=== PATIENT | male | born 1965 | race Caucasian/White ===

== ENCOUNTER 2023-02-02 12:55 | Inpatient (IN) ==
[2023-02-02] MEDS ORDERED: THIAMINE HCL 200 MG in SODIUM CHLORIDE 0.9% 50 ML IV STA (13:19)
[2023-02-02] MEDS ORDERED: SODIUM CHLORIDE 0.9% 1000ML 1,000 ML IV ONE (13:19)
[2023-02-02] MEDS ORDERED: LORazepam 2 MG/1 ML VIAL IV STA ×2 (13:19→16:12)
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
[2023-02-02 14:22] LABS: Hematocrit (blood only) 40.6 % (42.0-52.0); Hemoglobin 13.9 g/dl (14.0-18.0); Mean Corpuscular Hemoglobin 32.7 pg (25.0-34.0); Mean Corpuscular Hgb Conc 34.2 g/dL (32.0-36.0); Mean Corpuscular Volume 95.5 fL (80.0-100.0); Mean Platelet Volume 9.4 fL (9.4-12.4); Platelet Count 73 K/uL (130-400); RDW Coefficient of Variation 12.1 % (11.5-14.5); RDW Standard Deviation 42.5 fL (36.4-46.3); Red Blood Count 4.25 M/uL (4.70-6.10); White Blood Count 6.35 K/ul (4.8-10.8)
[2023-02-02 14:32] LABS: Albumin Globulin Ratio 1.5 (0.9-2); Albumin Level 4.6 gm/dl (3.4-5.0); BUN Creatinine Ratio 12.2 (10-20); Bilirubin,Total 2.5 mg/dl (0.2-1.0); Calcium 9.2 mg/dl (8.6-10.3); Creatinine Clr Calc Pharmacy 100.4 ml/min; Est GFR (African American) 114.6 ml/min; Est GFR (Non-African American) 98.9 ml/min; Potassium 3.9 mmol/L (3.5-5.1); Total Protein 7.6 gm/dl (6.0-8.3)
[2023-02-02 14:47] LABS: Basophils # (auto) 0.05 K/uL (0-0.2); Basophils % (auto) 0.8 %; Eosinophils # (auto) 0.09 K/uL (0-0.50); Eosinophils % (auto) 1.4 %; Immature Granulocytes # (auto) 0.05 K/uL (0.01-0.20); Immature Granulocytes % (auto) 0.8 %; Lymphocytes % (auto) 3.1 %; Monocytes # (auto) 0.36 K/uL (0.11-0.59); Monocytes % (auto) 5.7 %; Neutrophils % (auto) 88.2 %; Platelet Estimate Decreased (Normal); RBC Morphology Unremarkable
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
[2023-02-02 15:41] LABS: Appearance Urine Clear (Clear); Bacteria Urine Automated Negative (Negative); Bilirubin Urine Negative (Negative); Blood Urine Trace (Negative); Color Urine Orange; Glucose Urine UA Negative (Negative); Ketones Urine 4+ (Negative); Leukocyte Esterase Urine Negative (Negative); Nitrite Urine Negative (Negative); Protein Urine 1+ (Negative); RBC Urine Automated 0-4 /hpf (0-4); Specific Gravity Urine 1.023 (1.000-1.030); Urobilinogen Urine Negative (Negative); WBC Urine Automated 0 /hpf (0-5); pH Urine 5.5 (4.5-7.5)
[2023-02-02 15:49] LABS: Acetaminophen < 3 ug/ml (10-30); Salicylate < 3.0 mg/dl (3.0-30)
[2023-02-02 16:24] LABS: Amphetamines+Metham, Urine Neg (Neg); Barbiturates, Urine Neg (Neg); Benzodiazepine, Urine Neg (Neg); Cocaine, Urine Neg (Neg); MDMA (Ecstacy), Urine Neg (Neg); Methadone, Urine Neg (Neg); Opiate, Urine Neg (Neg); Phencyclidine, Urine Neg (Neg)
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
[2023-02-02] MEDS ORDERED: LORazepam 2 MG/1 ML VIAL IV PRN ×3 (18:25)
[2023-02-02] MEDS ORDERED: chlordiazePOXIDE ALCOHOL WITHDRAWL 25MG PO STA (18:25)
[2023-02-02] MEDS ORDERED: Ativan IV Alcohol Withdrawal--Active Protocol IV PRN (18:25)
--- NOTE | 2023-02-02 19:45 | Ultrasound Report ---
ULTRASOUND RIGHT UPPER QUADRANT ABDOMEN CLINICAL HISTORY: Elevated hepatic transaminases. COMPARISON STUDY: No priors. TECHNIQUE: Real-time, grayscale, and color flow sonography of the right upper quadrant of the abdomen was performed. Images are reviewed in the transverse and longitudinal planes. FINDINGS: Liver: The liver is enlarged and demonstrates heterogeneously increased echotexture indicating steato sis. There is no intrahepatic biliary ductal dilatation. The main portal vein is patent. Gallbladder: A fibroid or gallbladder polyp is incidentally noted. The gallbladder is otherwise maciej l in appearance. No shadowing gallstones are identified. There is no gallbladder wall thickening or p ericholecystic fluid. A sonographic Diego's sign is reportedly absent. The common bile duct measures up to 0.4 cm in diameter. Pancreas: Not visualized due to overlying bowel gas. Right kidney: Survey images of the right kidney demonstrate normal size and echotexture. There is no hydronephrosis. There is trace nonspecific perinephric fluid. Ascites: None. IMPRESSION: 1. Hepatomegaly and hepatic steatosis. 2. No gallstones are seen. 3. A 5 mm gallbladder polyp is noted. Nonemergent GI follow-up is recommended. 4. Nonvisualization of the pancreas. ACT 112: Negative or not required by law. Electronically signed by: Michael Kirkland M.D. 02/02/2023 7:44 PM
[2023-02-02] MEDS: chlordiazePOXIDE HCl 25 MG CAP PO SCH (20:03)
[2023-02-03] MEDS: chlordiazePOXIDE HCl 25 MG CAP PO SCH ×3 (00:31→13:34)
[2023-02-03 06:22] LABS: Basophils # (auto) 0.03 K/uL (0-0.2); Basophils % (auto) 0.5 %; Eosinophils # (auto) 0.06 K/uL (0-0.50); Eosinophils % (auto) 1.1 %; Hematocrit (blood only) 37.6 % (42.0-52.0); Hemoglobin 13.3 g/dl (14.0-18.0); Immature Granulocytes # (auto) 0.02 K/uL (0.01-0.20); Immature Granulocytes % (auto) 0.4 %; Lymphocytes # (auto) 0.72 K/uL (1.2-3.4); Lymphocytes % (auto) 12.9 %; Mean Corpuscular Hemoglobin 32.6 pg (25.0-34.0); Mean Corpuscular Hgb Conc 35.4 g/dL (32.0-36.0); Mean Corpuscular Volume 92.2 fL (80.0-100.0); Mean Platelet Volume 9.8 fL (9.4-12.4); Monocytes # (auto) 0.43 K/uL (0.11-0.59); Monocytes % (auto) 7.7 %; Neutrophils # (auto) 4.32 K/uL (1.40-6.50); Neutrophils % (auto) 77.4 %; Platelet Count 84 K/uL (130-400); RDW Coefficient of Variation 11.9 % (11.5-14.5); RDW Standard Deviation 40.7 fL (36.4-46.3); Red Blood Count 4.08 M/uL (4.70-6.10); White Blood Count 5.58 K/ul (4.8-10.8)
[2023-02-03 06:34] LABS: Albumin Globulin Ratio 1.5 (0.9-2); Albumin Level 4.4 gm/dl (3.4-5.0); BUN Creatinine Ratio 13.4 (10-20); Bilirubin,Total 2.6 mg/dl (0.2-1.0); Calcium 9.6 mg/dl (8.6-10.3); Creatinine Clr Calc Pharmacy 124.2 ml/min; Est GFR (African American) 124.5 ml/min; Est GFR (Non-African American) 107.4 ml/min; Magnesium 1.7 mg/dl (1.7-2.4); Potassium 3.8 mmol/L (3.5-5.1); Total Protein 7.4 gm/dl (6.0-8.3)
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
[2023-02-03] MEDS ORDERED: FOLIC ACID 1 MG in SYRINGE 9.8 ML IV SCH (09:00)
[2023-02-03] MEDS ORDERED: THIAMINE HCL 100 MG TAB PO SCH (09:00)
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
[2023-02-03] MEDS ORDERED: chlordiazePOXIDE HCl 25 MG CAP PO SCH (19:00)
[2023-02-04 12:16] LABS: HBSAG NON-REACTIVE (NON-REACTIVE); Hepatitis A Antibody IgM NON-REACTIVE (NON-REACTIVE); Hepatitis B Core Antibody IgM NON-REACTIVE (NON-REACTIVE)
--- NOTE | 2023-02-04 22:39 | Electrocardiogram Report ---
Test Reason : Blood Pressure : / mmHG Vent. Rate : 072 BPM Atrial Rate : 072 BPM P-R Int : 162 ms QRS Dur : 110 ms QT Int : 390 ms P-R-T Axes : 062 -06 077 degrees QTc Int : 427 ms Normal sinus rhythm Incomplete right bundle branch block Borderline ECG When compared with ECG of 13-NOV-2020 14:02, Incomplete right bundle branch block is now Present Confirmed by Primitivo Adams ([id number]) on 02/04/2023 10:39:17 PM Referred By: REFERRED SELF Confirmed By:Primitivo Adams
[2023-02-05] MEDS ORDERED: chlordiazePOXIDE HCl 5 MG CAP PO SCH (23:00)
== END 2023-02-03 18:43 | disposition home or self-care (01) | DRG 897 ==
LOC: ED 12:55 → 2E 17:01 → SUATTDRO 17:01 → 2E 17:57

== ENCOUNTER 2023-06-12 08:31 | Inpatient (IN) ==
[2023-06-12] MEDS ORDERED: SODIUM CHLORIDE 0.9% 500 ML IV SCH (08:45)
[2023-06-12] MEDS ORDERED: LORazepam 1 MG/1 ML SYR ED Inj Use IV STA (09:25)
[2023-06-12] MEDS ORDERED: ONDANSETRON INJ 2 MG/ML 2 ML VIAL IV STA (09:25)
[2023-06-12] MEDS ORDERED: MULTI-VITAMIN INFUSION 10 ML, THIAMINE HCL 100 MG, FOLIC ACID 1 MG in SODIUM CHLORIDE 0... IV ONE (09:25)
--- NOTE | 2023-06-12 09:54 | Emergency Department Note ---
Impression & Plan Alcohol withdrawal, Alcohol abuse, Nausea & vomiting ED Provider Note CHIEF COMPLAINT: Nausea, vomiting, general illness, alcohol withdrawal HISTORY OF PRESENT ILLNESS: This 57-year-old male patient presents to the emergency department via private vehicle for evaluation of nausea, vomiting, general illness. Patient states he is an alcoholic. He states he normally drinks a pint of vodka a day. He has withdrawn in the past and has been hospitalized and has gone to rehab several times. The patient states his last drink was on Tuesday. Since , he has been experiencing intractable nausea and vomiting and states he is generally feeling terrible. The patient denies history of seizures. He does often get visual hallucinations when he detoxes. He is not currently experiencing hallucinations. Patient denies any vomiting blood. No chest pain, shortness of breath, abdominal pain. No headache, dizziness, numbness, or tingling. He has not reached out to a detox center upon deciding to quit. REVIEW OF SYSTEMS: A 10 system review of systems was performed with positives and pertinent negatives listed in the history of present illness. All other systems were reviewed and are negative. ALLERGIES: None PHYSICAL EXAM: VITALS: Vitals are noted on the nurse's note and reviewed by myself. Vital signs stable. GENERAL: This is a 57-year-old male, in no acute distress, nondiaphoretic, well- developed well-nourished. SKIN: The skin was without rashes, erythema, edema, or bruising. There is no tenting of the skin. Capillary refill less than 2 seconds. HEAD: Normocephalic atraumatic. EARS: External auditory canals clear, tympanic membranes pearly cooper without erythema or effusion bilaterally. No hemotympanum. Negative martinez sign EYES: Pupils equal round and reactive to light and accommodation. Conjunctivae without injection, sclerae without icterus. Extraocular movements intact. NOSE: Patent, turbinates without inflammation or discharge. No sinus tenderness. MOUTH: Mucous membranes moist. Tonsils are not enlarged. Pharynx without erythema or exudate. Uvula midline. Airway patent. Tongue does not deviate. NECK: Supple without nuchal rigidity. No lymphadenopathy. No thyromegaly. Cervical spine is nontender. No JVD. HEART: Regular rate and rhythm without murmurs gallops or rubs. LUNGS: Clear to auscultation bilaterally without wheezes, rales or rhonchi. No retractions or accessory muscle use. ABDOMEN: Positive bowel sounds x 4. Soft, nontender, without masses or organomegaly. Diego sign negative. No guarding or rebound tenderness. MUSCULOSKELETAL: No muscle atrophy, erythema, or edema noted. Full range of motion without joint tenderness in all extremities. No tenderness to palpation. Normal gait. Strength 5/5 throughout. NEURO: Patient was alert and oriented to person place and time. Normal sensation to light and sharp touch. Deep tendon reflexes 2+ throughout. No focal neurological deficits. An order was placed for continuous residential monitor. The monitor showed a normal sinus rhythm at a ventricular rate of 98 bpm, per my interpretation. EKG, per my interpretation: Normal sinus rhythm with ventricular rate of [address] elevation or depression. No T wave inversion. When compared to EKG completed on 04/13/2023, prolonged QT of 388 has improved and currently QT 334 EMERGENCY DEPARTMENT COURSE: The patient was seen and evaluated as above. The patient presents for alcohol withdrawal symptoms IV access obtained, labs were drawn. The patient was medicated with a banana bag and IV Ativan Labs were reviewed. No leukocytosis. There is an anemia with a hemoglobin of 12.8. Thrombocytopenia with a platelet count of 71,000. INR 1.0. Sodium is low at 126. Anion gap elevated at 17, BUN 46. AST mildly elevated at 62, otherwise transaminases without significant abnormality. Ammonia was 49. Alcohol was less than 10. Patient is not experiencing active hallucinations. The [facility] hospitalist is familiar with this patient and has detoxed him in the past. Given the patient's lab findings and presentation, did recommend admission. I did discuss the case with Dr. Arenas. He did agree to see and evaluate the patient for admission. Please see hospitalist dictation regarding ongoing management care of this patient Differential diagnosis includes Alcohol intoxication, toxicologic, infection, hypoglycemia, electrolyte abnormalities, cardiac sources, intracerebral event, neurologic, seizures, as well as other pathologies. I attest that I have personally reviewed the patient's current medication list. Patient was found to have normal blood pressure on screening and does not require follow-up. The chart was completed utilizing [employer] voice recognition software. Grammatical errors, random word insertions, pronoun errors, and incomplete sentences are an occasional consequence of this system due to software limitations, ambient noise, and hardware issues. Any formal questions or concerns about the content, text, or information contained within the body of this dictation should be directly addressed to the provider for clarification. Past Med/Surg History Medical History Upper GI bleeding Alcohol withdrawal Left rib fracture Vitamin D deficiency Alcohol use disorder, severe, dependence Pancytopenia Ambulatory dysfunction Esophageal stenosis Erosive esophagitis Acute metabolic encephalopathy Abnormal LFTs Alcoholism Acute blood loss anemia Contusion of multiple sites Alcohol abuse Ambulatory dysfunction Alcoholism in recovery Dupuytren's contracture of both hands Arthritis GERD (gastroesophageal reflux disease) Depression Anxiety Patella jack Hyperlipidemia no meds Surgical History History of surgery on upper extremity as a child History of esophagogastroduodenoscopy (EGD) Hx of hand surgery BL Family History Grandfather (Maternal) Myocardial infarction Father FH: ALS (amyotrophic lateral sclerosis) Other No family history of adverse response to anesthesia Denies family history of Ovarian cancer Prostate cancer Breast cancer Colorectal cancer Social History Smoking Status: Never smoker Tobacco Type: Smokeless Tobacco (Dip or Chew) Second Hand Exposure: No; Do You Dip or Chew Tobacco: Yes; Hx Alcohol Use: Yes Alcohol type: hard liquor Alcohol Intake Frequency Comment: daily vodka - pint Hx Substance Use: Yes (Alcohol) Preferred Language: Vietnamese Communication Ability: Effective Visual Impairment: No Limitations Hearing Ability: Normal Credit Compliance Officer Required: No Beliefs That Will Affect Care: None marital status: Current Living Situation: Parent Current Living Situation Comment: Mother current occupational status: unemployed current occupation: [employer] How many Children do You have: 2 Feels Safe at Home: Yes Childhood Exposure to Second-Hand Smoke: No Diet: regular Diet Comment: regular caffeine: Yes during the past year weight has: remained stable Dental Care, Regularly: No Physical Activity Frequency: Daily Seatbelt Use: always Sunscreen Use: Yes Assistive Devices: Cane Allergies Allergies Allergy/AdvReac Type Severity Reaction Status Date / Time No Known Allergies Allergy Unverified 04/27/23 09:19 Home Meds Home Medications Medication Instructions Recorded Confirmed multivitamin 1 tab PO DAILY 02/02/23 06/12/23 ergocalciferol (vitamin D2) 1,250 50,000 unit PO WK 06/12/23 06/12/23 mcg (50,000 unit) capsule thiamine HCl (vitamin B1) 100 mg 100 mg PO BID 06/12/23 06/12/23 tablet Previous Rx's Medication Instructions Recorded folic acid 1 mg tablet 1 mg PO DAILY #30 tabs 04/18/23 pantoprazole 40 mg tablet,delayed 40 mg PO BID #60 tabs 04/18/23 release Results & Data (ED) Vital Signs Vital Signs - 24 hr 06/12/23 09:08 06/12/23 09:20 06/12/23 09:30 Temperature 36.7 C Temperature Source Temporal Artery Scan Pulse Rate 119 H 95 H Pulse Rate [Apical] 100 H Pulse Rhythm Respiratory Rate 18 30 H Respiratory Effort / Characteristics Non-Labored Spontaneous Respiratory Depth Normal Respiratory Pattern Regular Blood Pressure 125/61 Blood Pressure [Right Arm] 120/78 Blood Pressure Mean 82 Blood Pressure Mean [Right Arm] 92 Blood Pressure Position [Right Arm] Pulse Oximetry 98 92 Oxygen Delivery Method Room Air Room Air Sepsis Recent Fever Within 48 Hours No Sepsis New/Unexplained Change in Mental Status No Sepsis Action Taken by Nursing No Action Required 06/12/23 09:32 06/12/23 11:00 06/12/23 11:43 Temperature 36.6 C Temperature Source Oral Pulse Rate 98 H Pulse Rate [Apical] 106 H Pulse Rhythm Regular Respiratory Rate 16 Respiratory Effort / Characteristics Non-Labored Spontaneous Respiratory Depth Normal Respiratory Pattern Regular Blood Pressure Blood Pressure [Right Arm] 113/89 Blood Pressure Mean Blood Pressure Mean [Right Arm] 97 Blood Pressure Position [Right Arm] Sitting Pulse Oximetry 95 97 99 Oxygen Delivery Method Room Air Room Air Room Air Sepsis Recent Fever Within 48 Hours Sepsis New/Unexplained Change in Mental Status Sepsis Action Taken by Nursing Laboratory Data 06/12/23 16:08 06/12/23 10:30 Lab Results 06/12/23 Range/Units 10:30 WBC 6.87 (4.8-10.8) K/ul RBC 4.12 L (4.70-6.10) M/uL Hgb 12.8 L (14.0-18.0) g/dl Hct 36.9 L (42.0-52.0) % MCV 89.6 (80.0-100.0) fL MCH 31.1 (25.0-34.0) pg MCHC 34.7 (32.0-36.0) g/dL RDW Std Deviation 41.8 (36.4-46.3) fL RDW Coeff of [place]ne[place] 12.7 (11.5-14.5) % Plt Count 71 L (130-400) K/uL MPV 10.2 (9.4-12.4) fL Immature Gran % (Auto) 0.1 % Neut % (Auto) 88.1 % Lymph % (Auto) 4.9 % [place] % (Auto) 6.8 % Eos % (Auto) 0.0 % Baso % (Auto) 0.1 % Neut # (Auto) 6.04 (1.40-6.50) K/uL Lymph # (Auto) 0.34 L (1.20-3.40) K/uL [place] # (Auto) 0.47 (0.11-0.59) K/uL Eos # (Auto) 0.00 (0.00-0.50) K/uL Baso # (Auto) 0.01 (0.00-0.20) K/uL Immature Gran # (Auto) 0.01 (0.01-0.20) K/uL PT 11.4 (9.0-12.0) Seconds INR 1.0 (0.9-1.1) APTT 25.6 (21.0-31.0) Seconds PTT Ratio 0.9 Sodium 126 L (136-145) mmol/L Potassium 4.7 (3.5-5.1) mmol/L Chloride 89 L (98-107) mmol/L Carbon Dioxide 20 L (21-32) mmol/L Anion Gap 17 H (3-11) BUN 46 H (6-23) mg/dl Creatinine 1.04 (0.6-1.4) mg/dl Est Cr Clr Drug Dosing Not Reportable Est GFR ( Amer) 92.6 ml/min Est GFR (Non-Af Amer) 79.9 ml/min BUN/Creatinine Ratio 44.2 H (10-20) Glucose 188 H (70-99(Fasting)) mg/dl Calcium 9.7 (8.6-10.3) mg/dl Magnesium 1.8 (1.7-2.4) mg/dl Total Bilirubin 1.9 H (0.2-1.0) mg/dl AST 62 H (13-39) U/L ALT 29 (7-52) U/L Alkaline Phosphatase 78 (34-104) U/L Ammonia 49.0 (18-72) umol/L Total Protein 7.1 (6.0-8.3) gm/dl Albumin 4.4 (3.4-5.0) gm/dl Globulin 2.7 (2.5-4.0) gm/dl Albumin/Globulin Ratio 1.6 (0.9-2) Ethyl Alcohol mg/dL < 10.0 (<10.0) mg/dl Administered Medications Folic Acid 1 mg/ Syringe 10 mls @ 5 mls/min IV QAM JACQUELIN Stop: 07/12/23 11:59 Last Admin: 06/12/23 12:46 Dose: 5 mls/min Documented By: LUCINDA Lactated Ringer's (Lr) 1,000 mls @ 125 mls/hr IV .Q8H JACQUELIN Stop: 07/12/23 12:14 Last Admin: 06/12/23 12:46 Dose: 125 mls/hr Documented By: LUCINDA Discontinued Medications Chlordiazepoxide HCl (Chlordiazepoxide Hcl 25 Mg Cap) 50 mg PO Q6H JACQUELIN Stop: 06/13/23 05:46 Last Admin: 06/12/23 12:37 Dose: Not Given Documented By: LUCINDA Diazepam (Diazepam Inj 5 Mg/Ml 2 Ml Carp) 10 mg IV ONE ONE Stop: 06/12/23 12:08 Last Admin: 06/12/23 12:45 Dose: 10 mg Documented By: LUCINDA Sodium Chloride (Nss) 500 mls @ 999 mls/hr IV .Q31M JACQUELIN Stop: 06/12/23 09:15 Last Infusion: 06/12/23 10:14 Dose: Infused Documented By: Admin: 06/12/23 09:43 Dose: 999 mls/hr Documented By: KATHERINE Multivitamins 10 ml/ Thiamine HCl 100 mg/ Folic Acid 1 mg/Sodium Chloride 1,011.2 mls @ 500 mls/hr IV .Q2H2M ONE Stop: 06/12/23 11:26 Last Infusion: 06/12/23 12:09 Dose: Infused Documented By: Admin: 06/12/23 10:07 Dose: 500 mls/hr Documented By: KATHERINE Pantoprazole Sodium 80 mg/ (Dextrose) 120 mls @ 480 mls/hr IV ONE STA Stop: 06/12/23 11:04 Last Infusion: 06/12/23 12:10 Dose: Infused Documented By: Admin: 06/12/23 11:50 Dose: 480 mls/hr Documented By: LUCINDA Thiamine HCl 500 mg/ Sodium (Chloride) 55 mls @ 200 mls/hr IV ONE ONE Stop: 06/12/23 12:16 Last Infusion: 06/12/23 14:43 Dose: Infused Documented By: Admin: 06/12/23 12:46 Dose: 200 mls/hr Documented By: LUCINDA Magnesium Sulfate/Dextrose (Magnesium Sulfate / D5w) 1 gm in 100 mls @ 50 mls/hr IV ONE ONE Stop: 06/12/23 14:07 Last Infusion: 06/12/23 14:43 Dose: Infused Documented By: Admin: 06/12/23 12:46 Dose: 50 mls/hr Documented By: LUCINDA Lorazepam (Lorazepam 1 Mg/1 Ml Syr Ed Inj Use) 1 mg IV ONE STA Stop: 06/12/23 09:26 Last Admin: 06/12/23 09:42 Dose: 1 mg Documented By: KATHERINE Ondansetron HCl (Ondansetron Inj 2 Mg/Ml 2 Ml Vial) 4 mg IV NOW STA Stop: 06/12/23 09:26 Last Admin: 06/12/23 09:42 Dose: 4 mg Documented By: KATHERINE Discharge Plan Visit Data Chief Complaint: Alcohol Withdrawal Stated Complaint: VOMITING, ED Provider: Darell Jose ED Midlevel Provider: Gabriela Alanis Discharge Problem: Alcohol withdrawal, Alcohol abuse, Nausea & vomiting Patient Disposition: Admitted As Inpatient Discharge Instructions Interventions: ED Discharge Assessment Last Done: 06/12/23 15:13
[2023-06-12] MEDS ORDERED: PANTOprazole 80 MG in DEXTROSE 5% 100 ML IV STA (10:50)
[2023-06-12 10:53] LABS: Basophils # (auto) 0.01 K/uL (0.00-0.20); Basophils % (auto) 0.1 %; Hematocrit (blood only) 36.9 % (42.0-52.0); Hemoglobin 12.8 g/dl (14.0-18.0); Immature Granulocytes # (auto) 0.01 K/uL (0.01-0.20); Immature Granulocytes % (auto) 0.1 %; Lymphocytes # (auto) 0.34 K/uL (1.20-3.40); Lymphocytes % (auto) 4.9 %; Mean Corpuscular Hemoglobin 31.1 pg (25.0-34.0); Mean Corpuscular Hgb Conc 34.7 g/dL (32.0-36.0); Mean Corpuscular Volume 89.6 fL (80.0-100.0); Mean Platelet Volume 10.2 fL (9.4-12.4); Monocytes # (auto) 0.47 K/uL (0.11-0.59); Monocytes % (auto) 6.8 %; Neutrophils # (auto) 6.04 K/uL (1.40-6.50); Neutrophils % (auto) 88.1 %; Platelet Count 71 K/uL (130-400); RDW Coefficient of Variation 12.7 % (11.5-14.5); RDW Standard Deviation 41.8 fL (36.4-46.3); Red Blood Count 4.12 M/uL (4.70-6.10); White Blood Count 6.87 K/ul (4.8-10.8)
[2023-06-12 11:07] LABS: Alanine Aminotransferase 29 U/L (7-52); Albumin Globulin Ratio 1.6 (0.9-2); Albumin Level 4.4 gm/dl (3.4-5.0); Alkaline Phosphatase 78 U/L (34-104); Anion Gap 17 (3-11); Aspartate Aminotransferase 62 U/L (13-39); BUN Creatinine Ratio 44.2 (10-20); Bilirubin,Total 1.9 mg/dl (0.2-1.0); Blood Urea Nitrogen 46 mg/dl (6-23); Calcium 9.7 mg/dl (8.6-10.3); Carbon Dioxide 20 mmol/L (21-32); Chloride 89 mmol/L (98-107); Est GFR (African American) 92.6 ml/min; Est GFR (Non-African American) 79.9 ml/min; Globulin 2.7 gm/dl (2.5-4.0); Glucose 188 mg/dl (70-99(Fasting)); Magnesium 1.8 mg/dl (1.7-2.4); Potassium 4.7 mmol/L (3.5-5.1); Sodium 126 mmol/L (136-145); Total Protein 7.1 gm/dl (6.0-8.3)
--- NOTE | 2023-06-12 11:12 | History & Physical Report ---
Date of Service June 12, 2023 Assessment & Plan (1) Alcohol withdrawal: Plan: Acute alcohol withdrawal 1 pint of vodka intake per day consistently since prior admission. Last drink was evening of 06/08/2023. -Patient reports he is interested in getting through detox, getting sober, and following up with pharmacologic and support resources to remain sober. "I cannot keep doing this to my body " Reports a history of severe alcohol withdrawal with hallucinations, but no history of seizures/withdrawal seizures in the past -BJ S protocol. Initially targeting Librium taper however due to patient's concurrent GI bleed we will follow strict n.p.o. and 1 dose of Valium 10 mg given on admission. May redose if needed if patient is consistently scoring high on BJ S Banana bag given in ER, high-dose thiamine protocol, folic acid and thiamine Mild persistently positive AST of 62. Bili 1.9, no abdominal pain. Trended. Patient has mild hyponatremia at 126 with BSG 188 and is clinically volume depleted, suspect solute contraction with poor diet and chronic alcohol intake. Fluids as noted and will trend every 4 hours x2. Phosphate added (2) Upper GI bleeding: Plan: initially bloody and then dark/black emesis which began 1 day ago after dry heaving -Stools have become dark/black but not tarry for 1 day. On admitting exam stool is strongly guaiac positive Patient has a history of severe erosive esophagitis in the setting of alcohol use requiring EGD and cautery on 04/13/2023. Has not been compliant with PPI since discharge from that admission PPI bolus started, 40 mg Protonix push twice daily following this. Last hemoglobin 11.7, hemoglobin on admission is 12.8. He is hemodynamically stable, although had presyncope yesterday this has improved day of admission We will treat medically at this time. GI notified, agree with medical treatment with BP at this time and deferring formal consult however if patient has downtrending hemoglobin or vital instability may need repeat EGD and can update/formally consult at that time Strict n.p.o. (3) Hypomagnesemia: Plan: Repleted Plan DVT prophylaxis: Pharmacal prophylaxis contraindicated in the setting of bleed Disposition: PCU CODE STATUS: Full code Diet: Strict and History of Present Illness Primary Care Provider: DO Tao Robb is a 57-year-old male with a past medical history of erosive esophagitis with upper GI bleed, alcohol abuse with history of ICU admission for withdrawal who presents to the emergency department with nausea/vomiting and general unwellness. At last admission received 20 mg of Valium while in ER for withdrawal and then was admitted on Ativan BJ S protocol. He has continued to drink about 1 pint of vodka per day that, last drink was evening of 06/08 approximately 4-5 days ago. He reports since 3 days ago he has had severe nausea, vomiting, shakes, and feeling overall poorly. Prior episodes of withdrawal symptoms have lasted around 7 days with peak severity at around day 46. He was seen by psychiatry at prior admission for alcohol use disorder with suspected underlying unspecified depression/anxiety. Was recommended to follow- up with CM for potential substance use residential treatment options. If renal function stable within acamprosate stable because permitting; alternatively if this was cost prohibitive up titration of gabapentin may have been of benefit the patient. Tao is seen at the bedside. He reports that he has continued drink alcohol since his prior admission. He has not been taking any antiacid medicines consistently. Medicines to assist with sobriety were discussed, but he has not yet had any of these prescribed or trialed. He reports that his current symptoms feel similar to his prior withdrawal symptoms and he does want to get and stay sober "I cannot keep doing this anymore, I cannot keep doing this to my body ". He reports he is interested in both rehab, pharmacologic cessation a gents, and getting through medical detox. He reports he has continued to drink on average 1 pint of vodka per day up until last Tuesday, he reports he did well for a day or so and then developed worsening shakes, tremors, lightheadedness, dizziness, nausea, vomiting since yesterday. He reports he has had 1 day of black emesis and 1 day of black bowel movements which started several hours after his nausea/dry heaving/vomiting. He reports he was lightheaded and dizzy and felt like he was almost going to pass out yesterday, but that feeling has improved today and he is not lightheaded or dizzy today. Denies auditory/visual hallucinations. No chest pain or chest pressure. He is not short of breath. He reports he has no abdominal tenderness other than some discomfort when he is vomiting. Medical History: Reviewed Medications: Reviewed Surgical History: Reviewed Family history: Reviewed Allergies: Reviewed Social History: ETOH abuse as noted Code Status: Full Code Allergies Allergy/AdvReac Type Severity Reaction Status Date / Time No Known Allergies Allergy Unverified 04/27/23 09:19 Home Medications Medication Instructions Recorded Confirmed Type multivitamin 1 tab PO DAILY 02/02/23 06/12/23 History folic acid 1 mg tablet 1 mg PO DAILY #30 tabs 04/18/23 06/12/23 Rx pantoprazole 40 mg tablet,delayed 40 mg PO BID #60 tabs 04/18/23 06/12/23 Rx release ergocalciferol (vitamin D2) 1,250 50,000 unit PO WK 06/12/23 06/12/23 History mcg (50,000 unit) capsule thiamine HCl (vitamin B1) 100 mg 100 mg PO BID 06/12/23 06/12/23 History tablet Past Med/Surg History Medical History (Updated 06/12/23 @ 11:03 by Jose Arenas MD) Upper GI bleeding Alcohol withdrawal Left rib fracture Vitamin D deficiency Alcohol use disorder, severe, dependence Pancytopenia Ambulatory dysfunction Esophageal stenosis Erosive esophagitis Acute metabolic encephalopathy Abnormal LFTs Alcoholism Acute blood loss anemia Contusion of multiple sites Alcohol abuse Ambulatory dysfunction Alcoholism in recovery Dupuytren's contracture of both hands Arthritis GERD (gastroesophageal reflux disease) Depression Anxiety Patella jack Hyperlipidemia no meds Surgical History History of surgery on upper extremity as a child History of esophagogastroduodenoscopy (EGD) Hx of hand surgery BL Family History Grandfather (Maternal) Myocardial infarction Father FH: ALS (amyotrophic lateral sclerosis) Other No family history of adverse response to anesthesia Denies family history of Ovarian cancer Prostate cancer Breast cancer Colorectal cancer Social History Smoking Status: Never smoker Tobacco Type: Smokeless Tobacco (Dip or Chew) Second Hand Exposure: No; Do You Dip or Chew Tobacco: Yes; Hx Alcohol Use: Yes Alcohol type: hard liquor Alcohol Intake Frequency Comment: daily vodka - pint Hx Substance Use: Yes (Alcohol) Preferred Language: Swazi Communication Ability: Effective Visual Impairment: No Limitations Hearing Ability: Normal Chancery Clerk Required: No Beliefs That Will Affect Care: None marital status: Current Living Situation: Parent Current Living Situation Comment: Mother current occupational status: unemployed current occupation: [employer] How many Children do You have: 2 Feels Safe at Home: Yes Childhood Exposure to Second-Hand Smoke: No Diet: regular Diet Comment: regular caffeine: Yes during the past year weight has: remained stable Dental Care, Regularly: No Physical Activity Frequency: Daily Seatbelt Use: always Sunscreen Use: Yes Assistive Devices: Cane Physical Exam Physical Exam: General: A&Ox3. NAD. Cooperative. Skin is warm, slightly moist. Appears ill but nontoxic. Tremor HEENT: Atraumatic, normocephalic. Vision/hearing grossly intact Pulm: CTAB A&P. -wheezes, -rales, -rhonchi. Symmetrical chest rise. No increased work of breathing. No respiratory distress. Cardiac: Regular, tachycardic. No murmurs rubs or gallops. Radial pulses intact and symmetrical. Abdominal: Nontender, specifically no epigastric tenderness. nondistended, soft. BS present. Extremities: Warm, dry. Plain Clothes Police Officer strength, elbow flexion, hip flexion, ankle dorsiflexion/plantarflexion 5/5 bilaterally. Sensation of soft touch intact in hands and feet bilaterally without asymmetry Results & Data Results & Data Vital Signs (Past 12 Hours) Vital Signs Temp Pulse Pulse Resp BP BP Pulse Ox 06/12/23 09:32 98 H 95 06/12/23 09:30 100 H 30 H 120/78 92 06/12/23 09:20 95 H 06/12/23 09:08 36.7 C 119 H 18 125/61 98 O2 Del Method 06/12/23 09:32 Room Air 06/12/23 09:30 Room Air 06/12/23 09:20 06/12/23 09:08 Room Air PG Care Time/CCT Total # of Minutes Spent Total Time Spent with Patient: Total time spent is greater than 50% in coordination of care (as documented) at patient's floor/unit and/or counseling patient: Coding Level of Care Code 78669 INT INP/OBS CARE 3/75MIN Diagnoses Alcohol withdrawal F10.939 Upper GI bleeding K92.2 Hypomagnesemia E83.42
[2023-06-12 11:17] LABS: Partial Thromboplastin Ratio 0.9; Partial Thromboplastin Time 25.6 Seconds (21.0-31.0); Prothrombin Time 11.4 Seconds (9.0-12.0)
[2023-06-12] MEDS ORDERED: Ativan IV Alcohol Withdrawal--Active Protocol IV PRN (11:43)
[2023-06-12] MEDS ORDERED: chlordiazePOXIDE ALCOHOL WITHDRAWL 50MG PO STA (11:43)
[2023-06-12] MEDS ORDERED: LORazepam 3 MG in SYRINGE 1.5 ML IV PRN (11:43)
[2023-06-12] MEDS ORDERED: chlordiazePOXIDE HCl 25 MG CAP PO SCH (11:45)
[2023-06-12] MEDS ORDERED: ONDANSETRON INJ 2 MG/ML 2 ML VIAL IV PRN (11:48)
[2023-06-12] MEDS ORDERED: THIAMINE HCL 500 MG in SODIUM CHLORIDE 0.9% 50 ML IV ONE (12:00)
[2023-06-12] MEDS ORDERED: diazePAM INJ 5 MG/ML 2 ML CARP IV ONE (12:07)
[2023-06-12] MEDS ORDERED: MAGNESIUM SULFATE / D5W 1 GM/100 ML BAG IV ONE (12:08)
[2023-06-12] MEDS ORDERED: GLUCOSE 10 TAB/TUBE PO PRN (12:12)
[2023-06-12] MEDS ORDERED: GLUCAGON FOR INJ 1 MG VIAL SQ PRN (12:12)
[2023-06-12] MEDS ORDERED: DEXTROSE 50% 50 ML SYRINGE IV PRN (12:12)
[2023-06-12] MEDS ORDERED: GLUCOSE 40% GEL 15 GM TUBE PO PRN (12:12)
[2023-06-12] MEDS ORDERED: CARBOHYDRATES FOR HYPOGLYCEMIA PO PRN (12:12)
[2023-06-12] MEDS: FOLIC ACID 1 MG in SYRINGE 9.8 ML IV SCH (12:46)
[2023-06-12] MEDS: LACTATED RINGER'S 1,000 ML IV SCH ×2 (12:46→21:13)
[2023-06-12 16:38] LABS: Hematocrit (blood only) 32.4 % (42.0-52.0); Hemoglobin 11.3 g/dl (14.0-18.0)
[2023-06-12] MEDS: INSULIN ASPART PER UNIT CHARGE SC SCH (18:31)
[2023-06-12 20:21] LABS: Hematocrit (blood only) 31.6 % (42.0-52.0); Hemoglobin 11.3 g/dl (14.0-18.0)
[2023-06-12] MEDS: PANTOprazole 40 MG in SYRINGE 0 ML IV SCH (21:14)
[2023-06-12] MEDS: LORazepam 1 MG in SYRINGE 0.5 ML IV PRN (22:09)
[2023-06-12 23:35] LABS: Hematocrit (blood only) 32.8 % (42.0-52.0); Hemoglobin 11.5 g/dl (14.0-18.0)
[2023-06-13] MEDS: INSULIN ASPART PER UNIT CHARGE SC SCH ×4 (02:13→16:29)
[2023-06-13] MEDS: LORazepam 1 MG in SYRINGE 0.5 ML IV PRN (03:56)
[2023-06-13 04:18] LABS: Basophils # (auto) 0.01 K/uL (0.00-0.20); Basophils % (auto) 0.1 %; Eosinophils # (auto) 0.03 K/uL (0.00-0.50); Eosinophils % (auto) 0.4 %; Hematocrit (blood only) 32.4 % (42.0-52.0); Immature Granulocytes # (auto) 0.02 K/uL (0.01-0.20); Immature Granulocytes % (auto) 0.3 %; Lymphocytes # (auto) 1.27 K/uL (1.20-3.40); Lymphocytes % (auto) 18.8 %; Mean Corpuscular Hemoglobin 30.7 pg (25.0-34.0); Mean Corpuscular Volume 90.5 fL (80.0-100.0); Mean Platelet Volume 10.6 fL (9.4-12.4); Monocytes # (auto) 0.53 K/uL (0.11-0.59); Monocytes % (auto) 7.9 %; Neutrophils # (auto) 4.88 K/uL (1.40-6.50); Neutrophils % (auto) 72.5 %; Platelet Count 61 K/uL (130-400); RDW Coefficient of Variation 13.1 % (11.5-14.5); RDW Standard Deviation 43.2 fL (36.4-46.3); Red Blood Count 3.58 M/uL (4.70-6.10); White Blood Count 6.74 K/ul (4.8-10.8)
[2023-06-13] MEDS: NICOTINE 14 MG/24 HR PATCH TD SCH (04:25)
[2023-06-13 04:26] LABS: BUN Creatinine Ratio 39.7 (10-20); Creatinine Clr Calc Pharmacy 127.6 ml/min; Est GFR (African American) 127.7 ml/min; Est GFR (Non-African American) 110.2 ml/min
[2023-06-13] MEDS: LACTATED RINGER'S 1,000 ML IV SCH ×3 (05:19→22:00)
--- NOTE | 2023-06-13 06:14 | Electrocardiogram Report ---
Test Reason : Blood Pressure : / mmHG Vent. Rate : 097 BPM Atrial Rate : 097 BPM P-R Int : 120 ms QRS Dur : 096 ms QT Int : 334 ms P-R-T Axes : 053 000 079 degrees QTc Int : 424 ms Normal sinus rhythm ST elevation in Anterior leads Abnormal ECG When compared with ECG of 13-APR-2023 05:39, ST elevation now present in Anterior leads Confirmed by Sabas Whelan ([id number]) on 06/13/2023 6:14:33 AM Referred By: Confirmed By:Sabas Whelan
[2023-06-13 08:17] LABS: Hematocrit (blood only) 33.6 % (42.0-52.0); Hemoglobin 11.3 g/dl (14.0-18.0)
[2023-06-13] MEDS: FOLIC ACID 1 MG in SYRINGE 9.8 ML IV SCH (08:59)
[2023-06-13] MEDS: THIAMINE HCL 100 MG in SYRINGE 9 ML IV SCH (09:00)
[2023-06-13] MEDS: PANTOprazole 40 MG in SYRINGE 0 ML IV SCH ×2 (09:00→21:09)
--- NOTE | 2023-06-13 12:25 | Hospitalist Progress Note ---
Date of Service June 13, 2023 Assessment & Plan (1) Alcohol withdrawal: Plan: Acute alcohol withdrawal 1 pint of vodka intake per day consistently since prior admission. Last drink was evening of 06/08/2023. Reports a history of severe alcohol withdrawal with hallucinations, but no history of seizures/withdrawal seizures in the past Banana bag given in ER, high-dose thiamine protocol, folic acid and thiamine Still has some mild tremors on exam -Continue [facility] protocol (2) Upper GI bleeding: Plan: initially bloody and then dark/black emesis which began 1 day prior to presentation -Stools have become dark/black On admitting exam stool is strongly guaiac positive Patient has a history of severe erosive esophagitis in the setting of alcohol use requiring EGD and cautery on 04/13/2023. Has not been compliant with PPI since discharge from that admission PPI bolus started, 40 mg Protonix push twice daily following this. We will treat medically at this time. GI notified, agree with medical treatment with BP at this time and deferring formal consult however if patient has downtrending hemoglobin or vital instability may need repeat EGD and can update/formally consult at that time clear liquid diet -hb stable (3) Hypomagnesemia: Plan: Repleted Plan DVT prophylaxis: Pharmacal prophylaxis contraindicated in the setting of bleed Disposition: PCU CODE STATUS: Full code Diet: Strict and Admission and Anticipated Discharge Date Admission Date: June 12, 2023 Subjective Patient seen and examined, still has some tremors Review of Systems Review of Systems: All systems reviewed are negative, apart from the ones contained in the history. Physical Exam Physical Exam: The patient is awake, alert and oriented 3, well developed and well nourished, normocephalic and atraumatic, lying in bed and in no acute distress. HEENT--PERRL, EOMI, mucous membranes and oropharynx mildly dry Neck--supple. No JVD. No bruits. Thyroid normal, trachea midline, no adenopathy. Heart--normal S1 and S2. No murmurs, rubs or gallops. Lungs--clear bilaterally, no respiratory distress, no accessory muscle use. Abdomen--normal bowel sounds and soft. Mild epigastric and left sided abdominal pain Extremities--no cyanosis or clubbing. No edema. Dermatologic--normal skin turgor, normal color, no abnormal lymph nodes, no rash. Neurologic--cranial nerves II through XII grossly intact. Rheumatologic--normal range of motion. Psychiatric--normal affect. Results & Data Results & Data Vital Signs (Past 12 Hours) Vital Signs Temp Pulse Pulse Resp BP Pulse Ox O2 Del Method 06/13/23 11:33 98.6 F 86 18 97/60 L 99 Room Air 06/13/23 09:00 94 H 06/13/23 08:10 98.8 F 93 H 18 92/57 L 97 Room Air 06/13/23 03:43 98.1 F 89 18 103/68 98 Room Air 06/13/23 00:46 98.1 F 92 H 17 119/72 99 Room Air PG Care Time/CCT Total # of Minutes Spent Total Time Spent with Patient: Total time spent is greater than 50% in coordination of care (as documented) at patient's floor/unit and/or counseling patient: Coding Level of Care Code 78995 SUB INP/OBS CARE 2/35MIN Diagnoses Alcohol withdrawal F10.939 Upper GI bleeding K92.2 Hypomagnesemia E83.42 Time Spent (min) 35
[2023-06-13] MEDS ORDERED: chlordiazePOXIDE HCl 25 MG CAP PO SCH (13:45)
[2023-06-13 19:18] LABS: Amphetamines+Metham, Urine Neg (Neg); Barbiturates, Urine Neg (Neg); Benzodiazepine, Urine Pos (Neg); Cocaine, Urine Neg (Neg); MDMA (Ecstacy), Urine Neg (Neg); Methadone, Urine Neg (Neg); Opiate, Urine Neg (Neg); Phencyclidine, Urine Neg (Neg)
[2023-06-14] MEDS: INSULIN ASPART PER UNIT CHARGE SC SCH ×4 (01:26→17:39)
[2023-06-14] MEDS: LACTATED RINGER'S 1,000 ML IV SCH ×3 (05:12→21:55)
[2023-06-14 06:49] LABS: Basophils # (auto) 0.02 K/uL (0.00-0.20); Basophils % (auto) 0.6 %; Eosinophils # (auto) 0.04 K/uL (0.00-0.50); Eosinophils % (auto) 1.3 %; Hematocrit (blood only) 27.4 % (42.0-52.0); Hemoglobin 9.5 g/dl (14.0-18.0); Immature Granulocytes # (auto) 0.01 K/uL (0.01-0.20); Immature Granulocytes % (auto) 0.3 %; Lymphocytes # (auto) 0.97 K/uL (1.20-3.40); Lymphocytes % (auto) 30.7 %; Mean Corpuscular Hemoglobin 30.8 pg (25.0-34.0); Mean Corpuscular Hgb Conc 34.7 g/dL (32.0-36.0); Mean Platelet Volume 10.2 fL (9.4-12.4); Monocytes # (auto) 0.18 K/uL (0.11-0.59); Monocytes % (auto) 5.7 %; Neutrophils # (auto) 1.94 K/uL (1.40-6.50); Neutrophils % (auto) 61.4 %; Platelet Count 64 K/uL (130-400); RDW Standard Deviation 42.4 fL (36.4-46.3); Red Blood Count 3.08 M/uL (4.70-6.10); White Blood Count 3.16 K/ul (4.8-10.8)
[2023-06-14 07:17] LABS: BUN Creatinine Ratio 12.7 (10-20); Calcium 8.8 mg/dl (8.6-10.3); Creatinine Clr Calc Pharmacy 144.2 ml/min; Est GFR (Non-African American) 116.5 ml/min; Potassium 3.1 mmol/L (3.5-5.1)
[2023-06-14] MEDS ORDERED: POTASSIUM CHLORIDE CRTAB 20 MEQ TABCR PO STA (07:46)
[2023-06-14] MEDS: FOLIC ACID 1 MG in SYRINGE 9.8 ML IV SCH (08:51)
[2023-06-14] MEDS: PANTOprazole 40 MG in SYRINGE 0 ML IV SCH ×2 (08:52→21:54)
[2023-06-14] MEDS: THIAMINE HCL 100 MG in SYRINGE 9 ML IV SCH (08:52)
[2023-06-14] MEDS ORDERED: INFLUENZA VIRUS QUADRIVALENT VACCINE (IIV4) 0.5 ML SYR IM ONE (09:00)
[2023-06-14] MEDS: NICOTINE 14 MG/24 HR PATCH TD SCH (10:30)
--- NOTE | 2023-06-14 12:01 | Hospitalist Progress Note ---
Date of Service June 14, 2023 Assessment & Plan (1) Alcohol withdrawal: Plan: Acute alcohol withdrawal 1 pint of vodka intake per day consistently since prior admission. Last drink was evening of 06/08/2023. Reports a history of severe alcohol withdrawal with hallucinations, but no history of seizures/withdrawal seizures in the past Banana bag given in ER, high-dose thiamine protocol, folic acid and thiamine Still has some mild tremors on exam, but feels over all better -Continue [facility] protocol (2) Upper GI bleeding: Plan: initially bloody and then dark/black emesis which began 1 day prior to presentation -Stools have become dark/black On admitting exam stool is strongly guaiac positive Patient has a history of severe erosive esophagitis in the setting of alcohol use requiring EGD and cautery on 04/13/2023. Has not been compliant with PPI since discharge from that admission PPI bolus started, 40 mg Protonix push twice daily following this. We will treat medically at this time. GI notified, agree with medical treatment with BP at this time and deferring formal consult however if patient has downtrending hemoglobin or vital instability may need repeat EGD and can u pdate/formally consult at that time clear liquid diet, advance as tolerated -hb stable (3) Hypomagnesemia: Plan: Repleted (4) Hypokalemia: Plan: replace potassium Plan DVT prophylaxis: Pharmacal prophylaxis contraindicated in the setting of bleed Disposition: PCU CODE STATUS: Full code Diet: Strict and Hopefully d/c in the next 24 hrs Admission and Anticipated Discharge Date Admission Date: June 12, 2023 Subjective Patient seen and examined, still has some tremors, but feels over all better Review of Systems Review of Systems: All systems reviewed are negative, apart from the ones contained in the history. Physical Exam Physical Exam: The patient is awake, alert and oriented 3, well developed and well nourished, normocephalic and atraumatic, lying in bed and in no acute distress. HEENT--PERRL, EOMI, mucous membranes and oropharynx mildly dry Neck--supple. No JVD. No bruits. Thyroid normal, trachea midline, no adenopathy. Heart--normal S1 and S2. No murmurs, rubs or gallops. Lungs--clear bilaterally, no respiratory distress, no accessory muscle use. Abdomen--normal bowel sounds and soft. Mild epigastric and left sided abdominal pain Extremities--no cyanosis or clubbing. No edema. Dermatologic--normal skin turgor, normal color, no abnormal lymph nodes, no rash. Neurologic--cranial nerves II through XII grossly intact. Rheumatologic--normal range of motion. Psychiatric--normal affect. Results & Data Results & Data Vital Signs (Past 12 Hours) Vital Signs Temp Pulse Pulse Resp BP Pulse Ox O2 Del Method 06/14/23 11:15 98.8 F 85 20 106/71 99 Room Air 06/14/23 09:00 79 06/14/23 07:51 98.4 F 75 18 117/71 100 Room Air 06/14/23 03:04 99.5 F 75 18 109/68 97 Room Air PG Care Time/CCT Total # of Minutes Spent Total Time Spent with Patient: Total time spent is greater than 50% in coordination of care (as documented) at patient's floor/unit and/or counseling patient: Coding Level of Care Code 82763 SUB INP/OBS CARE 2/35MIN Diagnoses Alcohol withdrawal F10.939 Upper GI bleeding K92.2 Hypomagnesemia E83.42 Hypokalemia E87.6 Time Spent (min) 35
[2023-06-14] MEDS ORDERED: chlordiazePOXIDE HCl 25 MG CAP PO SCH (13:45)
[2023-06-14] MEDS: LORazepam 2 MG in SYRINGE 1 ML IV PRN (21:54)
--- OUTSIDE RECORDS SUMMARY | 2023-06-14 22:22 | External Medical Summary | Summary of Care ---
Author Name Unknown Organization [facility] Address [address] [place] [address] Phone [phone] Care Team Providers Care Photographic Printer Name Role Phone Unavailable Primary Care Provider Unavailabl e Encounter Details Date Type Department Care Team Description 04/13/2023 Telephone Gastroenterology, [facility] [address] [place] [id number] Saloni Mcguire CRNP [address] [place] [id number] Allergies No known active allergiesdocumented as of this encounter (statuses as of 04/19/2023) Medications Medication Sig Dispensed Refills Start Date End Date Status simvastatin (ZOCOR) 20 MG Tablet Take 1 Tab by mouth every night at bedtime. 90 Tab 3 11/06/2019 Active Ondansetron HCl 4 MG Oral Tablet (ZOFRAN) Take 4 mg by mouth every 6 hours as needed for Nausea. 0 Active Omeprazole 40 MG Oral Capsule Delayed Release (PriLOSEC) Take 1 Cap by mouth 2 times a day. 60 Cap 0 05/14/2020 Active Additional Information Patient not taking.Reported on 08/18/2022 Multi-Vitamins Oral Tablet Take 1 Tab by mouth daily at noon. 30 Tab 0 05/14/2020 Active Additional Information Patient not taking.Reported on 08/18/2022 Thiamine HCl 100 MG Oral Tablet (vitamin B-1) Take 1 Tab by mouth daily. 30 Tab 0 05/14/2020 Active documented as of this encounter (statuses as of 04/19/2023) Active Problems Problem Noted Date Aspiration pneumonia 05/13/2020 Erosive esophagitis 05/13/2020 Acute blood loss anemia 05/13/2020 Rhinovirus 03/13/2020 Fever 03/11/2020 Pancytopenia 03/11/2020 Elevated liver enzymes 03/11/2020 SIRS (systemic inflammatory response syn drome) 03/11/2020 Hyponatremia 03/11/2020 Hypokalemia 03/11/2020 Hyperglycemia 03/11/2020 Alcohol abuse 03/11/2020 Chews tobacco 03/11/2020 documented as of this encounter (statuses as of 04/19/2023) Resolved Problems Problem Noted Date Resolved Date Perceptual disturbances and seizures concurrent with and due to alcohol withdrawal 05/13/2020 documented as of this encounter (statuses as of 04/19/2023) Immunizations Name Administration Dates Next Due TDAP (age 10 and older)(Boostrix) 10/04/2019 documented as of this encounter Social History Tobacco Use Types Packs/Day Years Used Date Smoking Tobacco: Never Smokeless Tobacco: Current Snuff Alcohol Use Standard Drinks/Week Comments Yes 7 (1 standard drink = 0.6 oz pur e alcohol) says he drinks too much Food Insecurity Answer Date Recorded Within the past 12 months, y ou worried that your food would run out before you got money to buy more. Never true 10/04/2019 Within the past 12 months, t he food you bought just didn't last and you didn't have money to get more. Never true 10/04/2019 Sex Assigned at Date Recorded Not on file Job Start Date Occupation Industry Not on file Not on file Not on file documented as of this encounter Functional Status Functional Status Response Date of Assess ment Are you deaf or do you have serious difficulty h earing? No 03/11/2020 Are you blind or do you have serious difficulty seeing, even when wearing glasses? No 03/11/2020 Do you have serious difficul ty walking or climbing stairs? (5 years old or older) No 05/11/2020 Do you have difficulty dress ing or bathing? (5 years old or older) No 03/11/2020 Because of a physical, menta l, or emotional condition, do you have difficulty doing errands alone such as visiting a doctor s office or shopping? (15 years old or older) No 03/11/20 20 Cognitive Status Response Date of Assessm ent Because of a physical, menta l, or emotional condition, do you have serious difficulty concentrating, remembering, or making decisions? (5 years old or older No 03/11/2020 documented as of this encounter Miscellaneous Notes * Telephone Encounter - MEGAN Palma - 04/19/2023 11:58 AM EDT Spoke to pt, egd scheduled on 07/29 w/ gil Instructions mailed * Telephone Encounter - MEGAN Palma - 04/15/2023 11:38 AM EDT LMOM for pt to call back to schedule * Telephone Encounter - ILDA Klein - 04/13/2023 12:29 PM EDT Egd in 3 months follow up bleeding esophagitis ILDA Gonzalez 04/13/2023 12:29 PM documented in this encounter Plan of Treatment Upcoming Encounters Date Type Specialty Care Team Description 07/29/2023 Hospital Encounter Endoscopy Moises Bullock MD [address] [place] [phone] 07/29/2023 Surgery Endoscopy Moises Bullock MD [address] [place] [id number] ESOPHAGOGASTRODUODENOSCOPY (EGD), FLEXIBLE, TRANSORAL, DIAGNOSTIC Scheduled Orders Name Type Priority Associated Diagnoses Orde r Schedule EGD, FLEXIBLE, DIAGNOSTIC Procedures Routine Esophagitis Ordered: 04/13/2023 Scheduled Procedures Name Priority Associated Diagnoses Date/Ti me ESOPHAGOGASTRODUODENOSCOPY ( EGD), FLEXIBLE, TRANSORAL, DIAGNOSTIC Esophagitis 07/29/2023 2:00 PM EST ESOPHAGOGASTRODUODENOSCOPY ( EGD), FLEXIBLE, TRANSORAL, DIAGNOSTIC Recall Iron deficiency anemia, unspecified iron deficiency anemia type Health Maintenance Due Date Last Done Comments Hepatitis B (1 of 3 - 3-dose series) 1965 Pneumococcal Vaccine: Pediatrics (0 to 5 Years) and At-Risk Patients (6 to 64 Years) (1 - PCV) 1972 Cologuard 12/04/2011 Colonoscopy 12/04/2011 Colorectal Cancer Screening 12/04/2011 Fecal Occult Blood Test 12/04/2011 Sigmoidoscopy 12/04/2011 Depression Screening 10/03/2020 10/04/2019 COVID-19 Vaccine (3 - Booste r for Santi series) 09/18/2021 07/24/2021, 01/02/2021 Influenza Vaccine (FLU shot) (#1) 2023 Lipid Panel 10/24/2024 10/25/2019 DTaP,Tdap,and Td Vaccines (2 - Td or Tdap) 10/03/2029 10/04/2019 Hepatitis C Screening Completed 03/11/2020 Zoster Vaccines Completed 12/18/2020, 10/17/2020 GARDASIL-HPV IMMUNIZATION SERIES Aged Out No longer eligible b ased on patient's age to complete this topic MENINGOCOCCAL (MENACTRA/MENVEO) Aged Out No longer eligible b ased on patient's age to complete this topic documented as of this encounter Medical Devices Not on filedocumented as of this encounter Visit Diagnoses Diagnosis Esophagitis- Primary Esophagitis, unspecified Esophagitis Esophagitis, unspecified documented in this encounter Advance Directives Latest Code Status on File Code Status Date Activated Date Inactivated Comments Full Code 05/09/2020 2:34 PM 05/14/2020 2:43 PM This order reflects the patients wishes and were consensually agreed upon. Code Status History Code Status Date Activated Date Inactivated Comments Full Code 03/11/2020 4:51 PM 03/13/2020 4:18 PM This order reflects the patients wishes and were consensually agreed upon. Question Answer Comments Discussion of Advance Directives occurred with: Patient Does the patient have a Living Will? No Does the patient have Health Care Power of Board Certified Family Physician? No
[2023-06-15] MEDS: INSULIN ASPART PER UNIT CHARGE SC SCH ×3 (04:19→17:29)
[2023-06-15] MEDS: LORazepam 2 MG in SYRINGE 1 ML IV PRN (04:20)
[2023-06-15] MEDS: LACTATED RINGER'S 1,000 ML IV SCH ×3 (04:22→22:22)
[2023-06-15] MEDS ORDERED: LORazepam 3 MG in SYRINGE 1.5 ML IV STA ×2 (05:10→06:31)
[2023-06-15] MEDS ORDERED: LORazepam 2 MG/1 ML VIAL IM STA (05:47)
--- NOTE | 2023-06-15 05:52 | Communication Note ---
Date of Service: June 15, 2023 Notified by nursing at approximately 2 AM about concern for patient's agitation. Recommended managing agitation/attempts to leave the bed with 3 mg IV lorazepam via BJ protocol order set to nurse, who agreed. Nurse subsequently gave 3 mg, then 2 mg of IV lorazepam through protocol order set. Alerted over loud speaker about code cooper at approximately 5:30 AM. Proceeded to bedside, where patient was witnessed attempting to get out of bed and leave. Confirmed with nurse, who confirmed she had just given additional 3 mg IV lorazepam through protocol order set. Ordered soft limb restraints x4 and additional stat IM lorazepam 4 mg. Resident Activity Tracking Resident Involvement: Resident Care Provided and Bell Person Coverage Note Care Provided: Adult Hospital Medicine
[2023-06-15 06:13] LABS: Basophils # (auto) 0.02 K/uL (0.00-0.20); Basophils % (auto) 0.6 %; Eosinophils # (auto) 0.03 K/uL (0.00-0.50); Eosinophils % (auto) 0.9 %; Hematocrit (blood only) 30.9 % (42.0-52.0); Hemoglobin 10.4 g/dl (14.0-18.0); Lymphocytes # (auto) 1.04 K/uL (1.20-3.40); Lymphocytes % (auto) 32.8 %; Mean Corpuscular Hgb Conc 33.7 g/dL (32.0-36.0); Mean Corpuscular Volume 92.2 fL (80.0-100.0); Mean Platelet Volume 9.2 fL (9.4-12.4); Monocytes # (auto) 0.36 K/uL (0.11-0.59); Monocytes % (auto) 11.4 %; Neutrophils # (auto) 1.72 K/uL (1.40-6.50); Neutrophils % (auto) 54.3 %; Platelet Count 81 K/uL (130-400); RDW Coefficient of Variation 12.9 % (11.5-14.5); RDW Standard Deviation 43.6 fL (36.4-46.3); Red Blood Count 3.35 M/uL (4.70-6.10); White Blood Count 3.17 K/ul (4.8-10.8)
[2023-06-15 06:38] LABS: BUN Creatinine Ratio 9.2 (10-20); Calcium 9.6 mg/dl (8.6-10.3); Creatinine Clr Calc Pharmacy 133.5 ml/min; Est GFR (African American) 126.1 ml/min; Est GFR (Non-African American) 108.8 ml/min
[2023-06-15 06:42] LABS: Potassium 3.9 mmol/L (3.5-5.1)
[2023-06-15] MEDS ORDERED: Ativan IV Alcohol Withdrawal--Active Protocol IV PRN ×2 (08:31→20:50)
[2023-06-15] MEDS ORDERED: LORazepam 2 MG in SYRINGE 1 ML IV PRN ×2 (08:36→20:50)
[2023-06-15] MEDS ORDERED: LORazepam 1 MG in SYRINGE 0.5 ML IV PRN ×2 (08:36→20:50)
[2023-06-15] MEDS ORDERED: LORazepam 3 MG in SYRINGE 1.5 ML IV PRN ×2 (08:36→20:50)
[2023-06-15] MEDS ORDERED: HALOPERIDOL LACTATE 5 MG/ML 1 ML VIAL ONE (08:53)
[2023-06-15] MEDS ORDERED: HALOPERIDOL LACTATE 5 MG/ML 1 ML VIAL IV STA (08:56)
[2023-06-15] MEDS ORDERED: HALOPERIDOL LACTATE 5 MG/ML 1 ML VIAL IM STA ×2 (09:09→14:46)
[2023-06-15] MEDS: NICOTINE 14 MG/24 HR PATCH TD SCH (09:30)
[2023-06-15] MEDS: THIAMINE HCL 100 MG in SYRINGE 9 ML IV SCH (09:31)
[2023-06-15] MEDS: PANTOprazole 40 MG in SYRINGE 0 ML IV SCH ×2 (09:31→20:25)
[2023-06-15] MEDS: FOLIC ACID 1 MG in SYRINGE 9.8 ML IV SCH (09:31)
--- NOTE | 2023-06-15 11:55 | Hospitalist Progress Note ---
Date of Service June 15, 2023 Assessment & Plan (1) Alcohol withdrawal: Plan: Acute alcohol withdrawal 1 pint of vodka intake per day consistently since prior admission. Last drink was evening of 06/08/2023. Reports a history of severe alcohol withdrawal with hallucinations, but no history of seizures/withdrawal seizures in the past Banana bag given in ER, high-dose thiamine protocol, folic acid and thiamine overnight, he became more agitated, requiring increasing doses of ativan -Continue [facility] protocol -received a dose of im haldol 5mg (2) Upper GI bleeding: Plan: initially bloody and then dark/black emesis which began 1 day prior to presentation -Stools have become dark/black On admitting exam stool is strongly guaiac positive Patient has a history of severe erosive esophagitis in the setting of alcohol use requiring EGD and cautery on 04/13/2023. Has not been compliant with PPI since discharge from that admission PPI bolus started, 40 mg Protonix push twice daily following this. We will treat medically at this time. GI notified, agree with medical treatment with BP at this time and deferring formal consult however if patient has downtrending hemoglobin or vital instability may need repeat EGD and can update/formally consult at that time clear liquid diet, advance as tolerated -hb stable (3) Hypomagnesemia: Plan: Repleted (4) Hypokalemia: Plan: replace potassium Plan DVT prophylaxis: Pharmacal prophylaxis contraindicated in the setting of bleed Disposition: PCU CODE STATUS: Full code Diet: Strict and continue hospitalization Admission and Anticipated Discharge Date Admission Date: June 12, 2023 Subjective Patient seen and examined, overnight, he became more agitated, requiring increasing doses of ativan Review of Systems Review of Systems: All systems reviewed are negative, apart from the ones contained in the history. Physical Exam Physical Exam: The patient is awake, agitated HEENT--PERRL, EOMI, mucous membranes and oropharynx mildly dry Neck--supple. No JVD. No bruits. Thyroid normal, trachea midline, no adenopathy. Heart--normal S1 and S2. No murmurs, rubs or gallops. Lungs--clear bilaterally, no respiratory distress, no accessory muscle use. Abdomen--normal bowel sounds and soft. Mild epigastric and left sided abdominal pain Extremities--no cyanosis or clubbing. No edema. Dermatologic--normal skin turgor, normal color, no abnormal lymph nodes, no rash. Neurologic--cranial nerves II through XII grossly intact. Rheumatologic--normal range of motion. Psychiatric--normal affect. Results & Data Results & Data Vital Signs (Past 12 Hours) Vital Signs Temp Pulse Pulse Resp BP Pulse Ox O2 Del Method 06/15/23 11:16 98.1 F 93 H 19 124/68 100 Nasal Cannula 06/15/23 08:00 91 H 06/15/23 07:15 98.2 F 117 H 23 110/82 97 Room Air 06/15/23 05:00 98.8 F 96 H 14 127/91 96 Room Air 06/15/23 03:11 99.3 F 94 H 18 120/78 98 Room Air O2 Flow Rate 06/15/23 11:16 2 06/15/23 08:00 06/15/23 07:15 06/15/23 05:00 06/15/23 03:11 PG Care Time/CCT Total # of Minutes Spent Total Time Spent with Patient: Total time spent is greater than 50% in coordination of care (as documented) at patient's floor/unit and/or counseling patient: Coding Level of Care Code 37738 SUB INP/OBS CARE 2/35MIN Diagnoses Alcohol withdrawal F10.939 Upper GI bleeding K92.2 Hypomagnesemia E83.42 Hypokalemia E87.6 Time Spent (min) 35
[2023-06-15] MEDS ORDERED: LORazepam 2 MG/1 ML VIAL ONE (16:27)
[2023-06-15] MEDS ORDERED: LORazepam 3 MG in SYRINGE 1.5 ML IV ONE (16:47)
--- NOTE | 2023-06-15 19:26 | Critical Care Consultation ---
Date of Consultation June 15, 2023 Assessment & Plan (1) Alcohol withdrawal: (2) Upper GI bleeding: (3) Hypokalemia: Plan 57 year old male chronic alcohol use, multiple admission for ETOH withdrawl, erosive esophagitis with history of UGIB presents with ETOH withdrawl. Since withdrawl has not responded to ativan IV treatment he will be transferred to ICU for escalation of care and close monitoring. Replace potassium and magnesium. Discussed with primary. I have personally spent 40 minutes of critical care time in the direct management of this patient. This is a life/limb threatening event. This includes time spent evaluating patient, direct bedside care, chart review, placing orders, interpretation of diagnostic studies, discussion with consultants, patient, and family members, as well as other required patient management activities. This time is exclusive of all separately billable procedures, and teaching time and separate from and in addition to any other critical care service time. History of Present Illness Attending Physician: Courtney North MD History of Present Illness 57-year-old male with history of erosive esophagitis with upper GI bleed, alcohol abuse who was admitted on 06/12 for ETOH withdrawl. He has had multiple admissions for the same issue. Last hospitalization for ETOH withdrawl was in 04/2023. Over the last few days his withdrawl symptoms worsened. Overnight he received 15mg of ativan, during the day he was given haldol and ativan. He is progressively more restless. Currently with a 1:1. He is being transferred to the ICU for monitoring and escalation of care. Allergies Allergy/AdvReac Type Severity Reaction Status Date / Time No Known Allergies Allergy Unverified 04/27/23 09:19 Home Medications Medication Instructions Recorded Confirmed Type multivitamin 1 tab PO DAILY 02/02/23 06/12/23 History folic acid 1 mg tablet 1 mg PO DAILY #30 tabs 04/18/23 06/12/23 Rx pantoprazole 40 mg tablet,delayed 40 mg PO BID #60 tabs 04/18/23 06/12/23 Rx release ergocalciferol (vitamin D2) 1,250 50,000 unit PO WK 06/12/23 06/12/23 History mcg (50,000 unit) capsule thiamine HCl (vitamin B1) 100 mg 100 mg PO BID 06/12/23 06/12/23 History tablet Patient History Medical History Upper GI bleeding Alcohol withdrawal Left rib fracture Vitamin D deficiency Alcohol use disorder, severe, dependence Pancytopenia Ambulatory dysfunction Esophageal stenosis Erosive esophagitis Acute metabolic encephalopathy Abnormal LFTs Alcoholism Acute blood loss anemia Contusion of multiple sites Alcohol abuse Ambulatory dysfunction Alcoholism in recovery Dupuytren's contracture of both hands Arthritis GERD (gastroesophageal reflux disease) Depression Anxiety Patella jack Hyperlipidemia no meds Surgical History History of surgery on upper extremity as a child History of esophagogastroduodenoscopy (EGD) Hx of hand surgery BL Family History Grandfather (Maternal) Myocardial infarction Father FH: ALS (amyotrophic lateral sclerosis) Other No family history of adverse response to anesthesia Denies family history of Ovarian cancer Prostate cancer Breast cancer Colorectal cancer Social History Smoking Status: Never smoker Tobacco Type: Smokeless Tobacco (Dip or Chew) Second Hand Exposure: No; Do You Dip or Chew Tobacco: Yes (wants a nicotine patch); Tobacco Cessation Education Requested by Patient: No Hx Alcohol Use: Yes Alcohol type: hard liquor Alcohol Intake Frequency Comment: daily vodka - pint Hx Substance Use: No Preferred Language: Liberian Communication Ability: Effective Visual Impairment: No Limitations Hearing Ability: Normal Fence Manufacture Supervisor Required: No Beliefs That Will Affect Care: None marital status: Current Living Situation: Alone Current Living Situation Comment: Mother current occupational status: unemployed current occupation: [employer] How many Children do You have: 2 Other Information That Helps Us Care for You: Yes (I want to stop drinking) Feels Safe at Home: Yes Safety Concerns: Feels Safe At This Time Childhood Exposure to Second-Hand Smoke: No Diet: regular Diet Comment: regular caffeine: Yes during the past year weight has: remained stable Dental Care, Regularly: No Physical Activity Frequency: Daily Seatbelt Use: always Sunscreen Use: Yes Assistive Devices: Cane and Walker Review of Systems Review of Systems: Unobtainable due to cognitive status Physical Exam Constitutional: + altered mental status Respiratory: normal respiratory effort, lungs clear to auscultation Cardiovascular: Rate/Rhythm: regular rate and regular rhythm Skin: no rashes, warm and dry Neurologic: + confused Psychiatric: Hallucinations: no auditory hallucinations and no visual hallucinations Results & Data Results & Data Vital Signs (Past 12 Hours) Vital Signs Temp Pulse Pulse Resp BP Pulse Ox O2 Del Method 06/15/23 16:25 37.2 C 113 H 19 138/81 98 Nasal Cannula 06/15/23 14:26 36.6 C 06/15/23 11:16 36.7 C 93 H 19 124/68 100 Nasal Cannula 06/15/23 08:00 91 H O2 Flow Rate 06/15/23 16:25 2 06/15/23 14:26 06/15/23 11:16 2 06/15/23 08:00 Coding Level of Care Code 18634 CRITICAL CARE 1ST 30-74M Diagnoses Alcohol withdrawal syndrome with complication F10.939 Complication of substance-induced condition: with unspecified complication Upper GI bleeding K92.2 Hypokalemia E87.6 (1) Alcohol withdrawal Complication of substance-induced condition: with unspecified complication Qualified Code(s): F10.939 - Alcohol use, unspecified with withdrawal, unspecified
[2023-06-15] MEDS ORDERED: STAT IV Infusion **Titration per Protocol STA (19:30)
[2023-06-15] MEDS: POTASSIUM CHLORIDE / WTR 10 MEQ/100 ML PLCT IV SCH ×4 (20:25→23:29)
[2023-06-15] MEDS: dexMEDEtomidine 200 MCG/50 ML BAG IV SCH ×2 (21:01→23:44)
[2023-06-15] MEDS: LORazepam 1 MG TAB PO SCH (22:34)
[2023-06-16] MEDS: LORazepam 1 MG TAB PO SCH ×2 (00:15→05:50)
[2023-06-16 04:47] LABS: Hematocrit (blood only) 28.9 % (42.0-52.0); Hemoglobin 9.9 g/dl (14.0-18.0); Mean Corpuscular Hemoglobin 31.1 pg (25.0-34.0); Mean Corpuscular Hgb Conc 34.3 g/dL (32.0-36.0); Mean Corpuscular Volume 90.9 fL (80.0-100.0); Mean Platelet Volume 8.7 fL (9.4-12.4); Platelet Count 92 K/uL (130-400); RDW Standard Deviation 43.2 fL (36.4-46.3); Red Blood Count 3.18 M/uL (4.70-6.10); White Blood Count 3.15 K/ul (4.8-10.8)
[2023-06-16 05:01] LABS: BUN Creatinine Ratio 9.3 (10-20); Calcium 8.9 mg/dl (8.6-10.3); Creatinine Clr Calc Pharmacy 129.4 ml/min; Est GFR (Non-African American) 117.4 ml/min; Potassium 3.3 mmol/L (3.5-5.1)
[2023-06-16] MEDS: LACTATED RINGER'S 1,000 ML IV SCH (05:33)
[2023-06-16] MEDS: POTASSIUM CHLORIDE 20 MEQ/15 ML UDC PO STA ×2 (05:45→05:54)
[2023-06-16] MEDS: POTASSIUM CHLORIDE / WTR 10 MEQ/100 ML PLCT IV SCH ×3 (06:02→08:00)
[2023-06-16] MEDS: FOLIC ACID 1 MG in SYRINGE 9.8 ML IV SCH (07:49)
[2023-06-16] MEDS: THIAMINE HCL 100 MG in SYRINGE 9 ML IV SCH (07:49)
[2023-06-16] MEDS: dexMEDEtomidine 200 MCG/50 ML BAG IV SCH ×4 (07:49→23:18)
[2023-06-16] MEDS: PANTOprazole 40 MG in SYRINGE 0 ML IV SCH ×2 (07:50→20:54)
[2023-06-16] MEDS: NICOTINE 14 MG/24 HR PATCH TD SCH (07:50)
--- NOTE | 2023-06-16 08:48 | Critical Care Progress Note ---
Date of Service June 16, 2023 Assessment & Plan (1) Hypokalemia: (2) Nausea & vomiting: (3) Hypomagnesemia: (4) Alcohol abuse: Plan Reason Critically Ill: 57-year-old male here with a history significant for chronic alcohol use, multiple admission for ETOH withdrawal, erosive esophagitis with history of UGIB presents with ETOH withdrawal. Since withdrawal has not responded to Ativan IV treatment so transferred to ICU for escalation of care and close monitoring. Neuro - Alcohol Withdrawal -History of severe alcohol withdrawal with hallucinations, but no history of seizures/withdrawal seizures in the past -Intermittent periods of agitation, will awake without some memory of prior events -Follow AWSS protocol with PRN Ativan -Currently on Precedex 0.3mcg/kg/h Cardiac - -Telemetry shows regular rate, normal sinus rhythm -Normotensive Respiratory - -Currently on 2L NC -Continue end tidal CO2 monitoring GI - Upper GI Bleed -Presented with bloody/dark emesis -History of severe erosive esophagitis in the setting of alcohol use requiring EGD and cautery on 04/13/2023, has not been compliant with PPI since discharge from that admission -Continue Protonix 40 BID -Hgb stable at present -Due to periods of agitation as well as somnolence, not currently able to take PO Renal/Lytes - Hypokalemia, Hypomagnesia -Continue thiamine, folic acid supplementation -Replace lytes as needed: received mag sulfate and potassium this morning -LR at 90mL/h - -External urinary catheter in place -No concerns at this time. Endo - -Follow ICU hyperglycemic protocols Heme - -Stable H&H, Hgb of 9.9 today -Will continue to monitor for drops in hgb in setting of upper GI bleed ID - -No concerns for infection at this point Lines/IV Access - -PIVs intact DVT Prophylaxis - -Chemoprophylaxis contraindicated at present Thank you for allowing us to be part of this patient's care. Please refer to Dr. Fowler's documentation for any further recommendations. Admission and Anticipated Discharge Date Admission Date: June 12, 2023 Subjective Patient seen and evaluated at bedside. Nursing reports that patient has been resting this morning but had some increased agitation for periods in the past day. Unable to obtain meaningful HPI/ROS at this time, patient is sleeping. Patient has external urinary catheter in place, has soft limb restraints in place. Review of Systems Review of Systems: Unobtainable due to cognitive status Physical Exam Constitutional: + altered mental status; no acute distre ss ENMT: Ears: no external ear abnormality Nose: no external nose abnormality Moist mucous membranes Respiratory: normal respiratory effort; no labored breathing Nasal cannula in place Cardiovascular: Telemetry shows normal rate, sinus rhythm, limbs well perfused Skin: no rashes, warm and dry Psychiatric: Unable to assess at this time Genitourinary: External catheter in place, draining urine. Results & Data Results & Data Vital Signs (Past 12 Hours) Vital Signs Temp Pulse Pulse Resp BP BP Pulse Ox 06/16/23 06:00 37.1 C 87 17 93/59 L 99 06/16/23 05:00 36.8 C 81 17 123/62 95 06/16/23 04:00 36.8 C 86 19 107/63 99 06/16/23 03:01 78 13 90/51 L 98 06/16/23 02:01 36.4 C L 71 20 85/54 L 99 06/16/23 01:08 66 06/16/23 01:00 68 15 95 06/16/23 00:01 36.5 C 67 18 88/58 L 99 06/16/23 00:01 88/58 L 06/15/23 23:00 36.8 C 67 17 83/56 L 99 06/15/23 22:00 81 14 84/53 L 99 06/15/23 21:30 36.7 C 85 20 105/73 100 06/15/23 21:00 90 13 92/61 L 99 O2 Del Method O2 Flow Rate 06/16/23 06:00 Nasal Cannula 2 06/16/23 05:00 Nasal Cannula 2 06/16/23 04:00 Nasal Cannula 2 06/16/23 03:01 Nasal Cannula 2 06/16/23 02:01 Nasal Cannula 2 06/16/23 01:08 06/16/23 01:00 06/16/23 00:01 06/16/23 00:01 06/15/23 23:00 06/15/23 22:00 Nasal Cannula 2 06/15/23 21:30 Nasal Cannula 2 06/15/23 21:00 Nasal Cannula 2 Resident Activity Tracking Resident Involvement: Resident Care Provided Care Provided: Adult [facility] Medicine
[2023-06-16 09:41] LABS: 7-Aminoclonaz, Confirm NEGATIVE ng/mL (<25); Hydro-Alp Ur, GC/MS NEGATIVE ng/mL (<25); Hydroxyethylflurazepam, Conf NEGATIVE ng/mL (<50); Hydroxymidazolam Ur, GC/MS NEGATIVE ng/mL (<50); Hydroxytriazolam NEGATIVE ng/mL (<50); Lorazepam, Ur GC/MS 981 ng/mL (<50); Nordiazepam, Confirm 166 ng/mL (<50); Oxazepam Ur, GC/MS NEGATIVE ng/mL (<50); Temazepam, Confirm 178 ng/mL (<50)
[2023-06-16] MEDS: POTASSIUM CHLORIDE 40 MEQ in LACTATED RINGER'S 1,000 ML IV SCH ×2 (11:02→23:11)
--- NOTE | 2023-06-16 11:53 | Hospitalist Progress Note ---
Date of Service June 16, 2023 Assessment & Plan (1) Alcohol withdrawal: Plan: Acute alcohol withdrawal 1 pint of vodka intake per day consistently since prior admission. Last drink was evening of 06/08/2023. Reports a history of severe alcohol withdrawal with hallucinations, but no history of seizures/withdrawal seizures in the past Banana bag given in ER, high-dose thiamine protocol, folic acid and thiamine overnight, he became more agitated, requiring increasing doses of ativan, transferred to ICU -Started on Precedex infusion -Continue CIWA protocol -Appreciate outdoor advertising leasing agent (2) Upper GI bleeding: Plan: initially bloody and then dark/black emesis which began 1 day prior to presentation -Stools have become dark/black On admitting exam stool is strongly guaiac positive Patient has a history of severe erosive esophagitis in the setting of alcohol use requiring EGD and cautery on 04/13/2023. Has not been compliant with PPI since discharge from that admission PPI bolus started, 40 mg Protonix push twice daily following this. We will treat medically at this time. GI notified, agree with medical treatment with BP at this time and deferring formal consult however if patient has downtrending hemoglobin or vital instability may need repeat EGD and can update/formally consult at that time clear liquid diet, advance as tolerated -hb stable (3) Hypomagnesemia: Plan: Repleted (4) Hypokalemia: Plan: replace potassium Plan DVT prophylaxis: Pharmacal prophylaxis contraindicated in the setting of bleed Disposition: PCU CODE STATUS: Full code Diet: Strict and continue hospitalization Admission and Anticipated Discharge Date Admission Date: June 12, 2023 Subjective Transfreed to ICU yesterday, now on Precedex infusion, a bit somnolent this morning Review of Systems Review of Systems: unable to obtain Physical Exam Physical Exam: The patient is awake, somnolent HEENT--PERRL, EOMI, mucous membranes and oropharynx mildly dry Neck--supple. No JVD. No bruits. Thyroid normal, trachea midline, no adenopathy. Heart--normal S1 and S2. No murmurs, rubs or gallops. Lungs--clear bilaterally, no respiratory distress, no accessory muscle use. Abdomen--normal bowel sounds and soft. Mild epigastric and left sided abdominal pain Extremities--no cyanosis or clubbing. No edema. Dermatologic--normal skin turgor, normal color, no abnormal lymph nodes, no rash. Neurologic--cranial nerves II through XII grossly intact. Rheumatologic--normal range of motion. Psychiatric--normal affect. Results & Data Results & Data Vital Signs (Past 12 Hours) Vital Signs Temp Pulse Pulse Resp BP BP Pulse Ox 06/16/23 08:00 06/16/23 08:00 99.5 F 76 18 92/56 L 99 06/16/23 06:00 98.8 F 87 17 93/59 L 99 06/16/23 05:00 98.2 F 81 17 123/62 95 06/16/23 04:00 98.2 F 86 19 107/63 99 06/16/23 03:01 78 13 90/51 L 98 06/16/23 02:01 97.5 F L 71 20 85/54 L 99 06/16/23 01:08 66 06/16/23 01:00 68 15 95 06/16/23 00:01 97.7 F 67 18 88/58 L 99 06/16/23 00:01 88/58 L O2 Del Method O2 Flow Rate 06/16/23 08:00 Nasal Cannula 2 06/16/23 08:00 Nasal Cannula 2 06/16/23 06:00 Nasal Cannula 2 06/16/23 05:00 Nasal Cannula 2 06/16/23 04:00 Nasal Cannula 2 06/16/23 03:01 Nasal Cannula 2 06/16/23 02:01 Nasal Cannula 2 06/16/23 01:08 06/16/23 01:00 06/16/23 00:01 06/16/23 00:01 PG Care Time/CCT Total # of Minutes Spent Total Time Spent with Patient: Total time spent is greater than 50% in coordination of care (as documented) at patient's floor/unit and/or counseling patient: Coding Level of Care Code 42411 SUB INP/OBS CARE 2/35MIN Diagnoses Alcohol withdrawal syndrome with complication F10.939 Complication of substance-induced condition: with unspecified complication Upper GI bleeding K92.2 Hypomagnesemia E83.42 Hypokalemia E87.6 Time Spent (min) 35 (1) Alcohol withdrawal Complication of substance-induced condition: with unspecified complication Qualified Code(s): F10.939 - Alcohol use, unspecified with withdrawal, unspecified
[2023-06-16] MEDS: LORazepam 3 MG in SYRINGE 1.5 ML IV SCH ×2 (12:00→18:39)
[2023-06-17] MEDS: LORazepam 3 MG in SYRINGE 1.5 ML IV SCH ×2 (00:37→05:52)
[2023-06-17 05:25] LABS: Hematocrit (blood only) 30.6 % (42.0-52.0); Hemoglobin 10.8 g/dl (14.0-18.0); Mean Corpuscular Hemoglobin 31.3 pg (25.0-34.0); Mean Corpuscular Hgb Conc 35.3 g/dL (32.0-36.0); Mean Corpuscular Volume 88.7 fL (80.0-100.0); Mean Platelet Volume 9.2 fL (9.4-12.4); Platelet Count 176 K/uL (130-400); RDW Coefficient of Variation 13.2 % (11.5-14.5); RDW Standard Deviation 42.8 fL (36.4-46.3); Red Blood Count 3.45 M/uL (4.70-6.10); White Blood Count 6.25 K/ul (4.8-10.8)
[2023-06-17 05:46] LABS: BUN Creatinine Ratio 13.6 (10-20); Calcium 8.7 mg/dl (8.6-10.3); Creatinine Clr Calc Pharmacy 122.1 ml/min; Est GFR (African American) 125.3 ml/min; Est GFR (Non-African American) 108.1 ml/min; Magnesium 1.7 mg/dl (1.7-2.4); Phosphorus 3.3 mg/dl (2.5-4.9)
[2023-06-17 06:16] LABS: Basophils # (auto) 0.05 K/uL (0.00-0.20); Basophils % (auto) 0.8 %; Eosinophils # (auto) 0.07 K/uL (0.00-0.50); Eosinophils % (auto) 1.1 %; Immature Granulocytes % (auto) 1.6 %; Lymphocytes # (auto) 1.69 K/uL (1.20-3.40); Lymphocytes % (auto) 26.3 %; Monocytes # (auto) 2.19 K/uL (0.11-0.59); Monocytes % (auto) 34.1 %; Neutrophils # (auto) 2.32 K/uL (1.40-6.50); Neutrophils % (auto) 36.1 %
[2023-06-17] MEDS: NICOTINE 14 MG/24 HR PATCH TD SCH (07:39)
[2023-06-17] MEDS: FOLIC ACID 1 MG in SYRINGE 9.8 ML IV SCH (07:40)
[2023-06-17] MEDS: THIAMINE HCL 100 MG in SYRINGE 9 ML IV SCH (07:40)
[2023-06-17] MEDS: PANTOprazole 40 MG in SYRINGE 0 ML IV SCH (07:41)
[2023-06-17] MEDS: POTASSIUM CHLORIDE 40 MEQ in LACTATED RINGER'S 1,000 ML IV SCH (07:54)
--- NOTE | 2023-06-17 07:56 | Critical Care Progress Note ---
Date of Service June 17, 2023 Assessment & Plan (1) Hypokalemia: (2) Nausea & vomiting: (3) Hypomagnesemia: (4) Alcohol abuse: Plan Reason Critically Ill: 57-year-old male here with a history significant for chronic alcohol use, multiple admission for ETOH withdrawal, erosive esophagitis with history of UGIB presents with ETOH withdrawal. Since withdrawal has not responded to Ativan IV treatment so transferred to ICU for escalation of care and close monitoring. Neuro - Alcohol Withdrawal -History of severe alcohol withdrawal with hallucinations, but no history of seizures/withdrawal seizures in the past -Follow AWSS protocol with PRN Ativan. AWSS score of 1-2 overnight -Will start Librium taper today -Precedex was discontinued overnight, patient has been much more alert and oriented Cardiac - -Telemetry shows regular rate, normal sinus rhythm -Normotensive Respiratory - -Currently on room air -No concerns at this time GI - Upper GI Bleed -Presented with bloody/dark emesis -History of severe erosive esophagitis in the setting of alcohol use requiring EGD and cautery on 04/13/2023, has not been compliant with PPI since discharge from that admission -Continue Protonix 40 BID -Hgb stable at present -Has been alert enough to tolerate regular diet -No bowel movements although has only resumed a diet in the past 12+ hours Renal/Lytes - Hypokalemia, Hypomagnesia -Continue thiamine, folic acid supplementation -Replace lytes as needed -Will stop IVF as he has adequate PO intake - -External urinary catheter in place -No concerns at this time Endo - -Follow ICU hyperglycemic protocols Heme - -Stable H&H, Hgb of 10.8 today -Will continue to monitor for drops in hgb in setting of upper GI bleed ID - -No concerns for infection at this point Lines/IV Access - -PIVs intact DVT Prophylaxis - -Chemoprophylaxis contraindicated at present Thank you for allowing us to be part of this patient's care. Please refer to Dr. Fowler's documentation for any further recommendations. Admission and Anticipated Discharge Date Admission Date: June 12, 2023 Subjective Patient seen and examined at bedside this morning. He was awake, alert and eating breakfast during encounter. He states he is feeling "much better" today. Denies chest pain, shortness of breath, abdominal pain or lightheadedness/dizziness. Patient denies any bowel movements but has been urinating often. He states that his hands are "a bit shaky" at baseline, but does not have any tremors currently. He is eager to get up and out of bed today. Review of Systems Review of Systems: As per above Physical Exam Constitutional: average body habitus; no acute distress Eyes: + anicteric sclerae; no conjunctival abn ormality ENMT: Ears: no external ear abnormality Nose: no external nose abnormality Moist mucous membranes Respiratory: normal respiratory effort; no labored breathing Cardiovascular: Rate/Rhythm: regular rate and regular rhythm No lower extremity edema bilaterally Musculoskeletal: Moves all limbs independently Skin: no rashes, warm and dry Psychiatric: A+Ox3, euthymic affect Results & Data Results & Data Vital Signs (Past 12 Hours) Vital Signs Temp Pulse Pulse Resp BP BP Pulse Ox 06/17/23 06:17 36.6 C 06/17/23 06:00 78 19 124/64 94 06/17/23 05:32 36.4 C L 06/17/23 05:30 62 14 93 06/17/23 05:30 127/57 L 06/17/23 05:00 69 20 97 06/17/23 05:00 135/64 06/17/23 04:30 74 96 06/17/23 04:30 114/63 06/17/23 04:00 75 98 06/17/23 04:00 97/52 L 06/17/23 03:35 105/57 L 06/17/23 03:35 76 99 06/17/23 02:30 80 13 98 06/17/23 02:30 113/73 06/17/23 02:00 117/67 06/17/23 02:00 66 16 95 06/17/23 02:00 37.2 C 06/17/23 01:33 70 95 06/17/23 01:33 96/61 L 06/17/23 01:30 65 94 06/17/23 01:00 78 96 06/17/23 01:00 91/57 L 06/17/23 00:30 62 96 06/17/23 00:30 103/64 06/17/23 00:00 68 06/17/23 00:00 85/51 L 06/17/23 00:00 72 98 06/17/23 00:00 36.6 C 06/16/23 23:30 82/51 L 06/16/23 23:30 71 97 06/16/23 23:01 96/54 L 06/16/23 23:01 72 98 06/16/23 23:00 78/40 L 06/16/23 23:00 67 98 06/16/23 22:30 98/62 L 06/16/23 22:30 65 99 06/16/23 22:00 72 95 06/16/23 22:00 86/51 L 06/16/23 21:30 73 19 96 06/16/23 21:30 87/53 L 06/16/23 21:00 72 20 95 06/16/23 21:00 95/61 L 06/16/23 20:30 81 18 93 06/16/23 20:00 06/16/23 20:00 94/58 L 06/16/23 20:00 37 C 06/16/23 19:58 91 H 23 95 06/16/23 19:58 100/58 L O2 Del Method 06/17/23 06:17 06/17/23 06:00 Room Air 06/17/23 05:32 06/17/23 05:30 06/17/23 05:30 06/17/23 05:00 Room Air 06/17/23 05:00 06/17/23 04:30 Room Air 06/17/23 04:30 06/17/23 04:00 Room Air 06/17/23 04:00 06/17/23 03:35 06/17/23 03:35 Room Air 06/17/23 02:30 Room Air 06/17/23 02:30 06/17/23 02:00 06/17/23 02:00 Room Air 06/17/23 02:00 06/17/23 01:33 Room Air 06/17/23 01:33 06/17/23 01:30 Room Air 06/17/23 01:00 Room Air 06/17/23 01:00 06/17/23 00:30 06/17/23 00:30 06/17/23 00:00 06/17/23 00:00 Room Air 06/17/23 00:00 06/17/23 00:00 06/16/23 23:30 06/16/23 23:30 06/16/23 23:01 06/16/23 23:01 Room Air 06/16/23 23:00 06/16/23 23:00 Room Air 06/16/23 22:30 06/16/23 22:30 Room Air 06/16/23 22:00 06/16/23 22:00 06/16/23 21:30 Room Air 06/16/23 21:30 06/16/23 21:00 Room Air 06/16/23 21:00 06/16/23 20:30 Room Air 06/16/23 20:00 Room Air 06/16/23 20:00 06/16/23 20:00 06/16/23 19:58 Room Air 06/16/23 19:58 Resident Activity Tracking Resident Involvement: Resident Care Provided Care Provided: Adult Hospital Medicine
[2023-06-17] MEDS ORDERED: chlordiazePOXIDE ALCOHOL WITHDRAWL 50MG PO STA (09:53)
[2023-06-17 09:56] LABS: Potassium 4.3 mmol/L (3.5-5.1)
[2023-06-17] MEDS: chlordiazePOXIDE HCl 25 MG CAP PO SCH ×3 (10:13→20:49)
[2023-06-17] MEDS: PANTOprazole 40 MG TAB PO SCH (20:49)
--- NOTE | 2023-06-17 21:31 | Hospitalist Progress Note ---
Date of Service June 17, 2023 Assessment & Plan (1) Alcohol withdrawal: Plan: Acute alcohol withdrawal 1 pint of vodka intake per day consistently since prior admission. Last drink was evening of 06/08/2023. Reports a history of severe alcohol withdrawal with hallucinations, but no history of seizures/withdrawal seizures in the past Banana bag given in ER, high-dose thiamine protocol, folic acid and thiamine overnight, he became more agitated, requiring increasing doses of ativan, transferred to ICU -Started on Precedex infusion This was stopped on 06/17. -Continue CIWA protocol -Appreciate food mixer repairer WIll continue to monitor in the ICU overnight. (2) Upper GI bleeding: Plan: initially bloody and then dark/black emesis which began 1 day prior to presentation -Stools have become dark/black On admitting exam stool is strongly guaiac positive Patient has a history of severe erosive esophagitis in the setting of alcohol use requiring EGD and cautery on 04/13/2023. Has not been compliant with PPI since discharge from that admission PPI bolus started, 40 mg Protonix push twice daily following this. We will treat medically at this time. GI notified, agree with medical treatment with BP at this time and deferring formal consult however if patient has downtrending hemoglobin or vital instability may need repeat EGD and can update/formally consult at that time clear liquid diet, advance as tolerated -hb stable (3) Hypomagnesemia: Plan: Repleted (4) Hypokalemia: Plan: replace potassium Plan DVT prophylaxis: Pharmacal prophylaxis contraindicated in the setting of bleed Disposition: PCU CODE STATUS: Full code Diet: Strict and continue hospitalization Admission and Anticipated Discharge Date Admission Date: June 12, 2023 Subjective 57 yo male reports no new symptoms. He reports he will stop drinking. Review of Systems Review of Systems: All systems reviewed & are unremarkable except as noted in HPI & below Physical Exam Physical Exam: The patient is awake, HEENT--PERRL, EOMI Neck--supple. No JVD. Heart--normal S1 and S2. No murmurs, rubs or gallops. Lungs--clear bilaterally, no respiratory distress, no accessory muscle use. Abdomen--normal bowel sounds and soft. Mild epigastric and left sided abdominal pain Extremities--no cyanosis or clubbing. No edema. Neurologic--cranial nerves II through XII grossly intact. Rheumatologic--normal range of motion. Psychiatric--normal affect. Results & Data Results & Data Vital Signs (Past 12 Hours) Vital Signs Temp Pulse Resp BP Pulse Ox O2 Del Method O2 Flow Rate 06/17/23 21:00 110/65 06/17/23 21:00 90 16 98 Nasal Cannula 2 06/17/23 20:00 119/62 06/17/23 20:00 88 16 94 Nasal Cannula 2 06/17/23 20:00 36.6 C 06/17/23 19:00 90 20 06/17/23 19:00 100/57 L 97 Nasal Cannula 2 06/17/23 18:00 128/79 06/17/23 18:00 94 H 22 94 06/17/23 17:30 117/66 06/17/23 17:30 93 H 18 95 06/17/23 17:00 119/73 06/17/23 17:00 100 H 17 96 06/17/23 16:30 127/71 06/17/23 16:30 93 H 22 93 06/17/23 16:20 37.6 C H 06/17/23 16:00 95/57 L 06/17/23 16:00 87 21 94 06/17/23 15:30 96/57 L 06/17/23 15:30 86 18 94 06/17/23 15:00 105/58 L 06/17/23 15:00 93 H 19 98 06/17/23 14:30 88 14 100 06/17/23 14:30 110/56 L 06/17/23 14:00 95 H 21 96 06/17/23 14:00 107/53 L 06/17/23 13:30 93 H 22 06/17/23 13:00 97 H 21 97 06/17/23 13:00 115/67 06/17/23 12:30 94 H 28 H 93 06/17/23 12:30 111/60 06/17/23 12:29 37.7 C H 06/17/23 12:00 91 H 19 97 Room Air 06/17/23 12:00 101/75 06/17/23 11:30 119/67 06/17/23 11:30 89 23 95 06/17/23 11:00 90 19 98 06/17/23 11:00 115/61 06/17/23 10:30 124/68 06/17/23 10:30 96 H 20 95 Room Air 06/17/23 10:00 94 H 20 95 06/17/23 10:00 118/62 PG Care Time/CCT Total # of Minutes Spent Total Time Spent with Patient: Total time spent is greater than 50% in coordination of care (as documented) at patient's floor/unit and/or counseling patient: Coding Level of Care Code 20470 SUB INP/OBS CARE 2/35MIN Diagnoses Alcohol withdrawal syndrome with complication F10.939 Complication of substance-induced condition: with unspecified complication Upper GI bleeding K92.2 Hypomagnesemia E83.42 Hypokalemia E87.6 (1) Alcohol withdrawal Complication of substance-induced condition: with unspecified complication Qualified Code(s): F10.939 - Alcohol use, unspecified with withdrawal, unspecified
[2023-06-18 04:11] LABS: Basophils # (auto) 0.03 K/uL (0.00-0.20); Basophils % (auto) 0.9 %; Eosinophils # (auto) 0.06 K/uL (0.00-0.50); Eosinophils % (auto) 1.7 %; Hematocrit (blood only) 28.8 % (42.0-52.0); Immature Granulocytes # (auto) 0.01 K/uL (0.01-0.20); Immature Granulocytes % (auto) 0.3 %; Lymphocytes # (auto) 1.03 K/uL (1.20-3.40); Mean Corpuscular Hemoglobin 31.1 pg (25.0-34.0); Mean Corpuscular Hgb Conc 34.7 g/dL (32.0-36.0); Mean Corpuscular Volume 89.4 fL (80.0-100.0); Mean Platelet Volume 8.6 fL (9.4-12.4); Monocytes # (auto) 1.21 K/uL (0.11-0.59); Monocytes % (auto) 35.3 %; Neutrophils # (auto) 1.09 K/uL (1.40-6.50); Neutrophils % (auto) 31.8 %; Platelet Count 214 K/uL (130-400); RDW Coefficient of Variation 13.2 % (11.5-14.5); RDW Standard Deviation 43.2 fL (36.4-46.3); Red Blood Count 3.22 M/uL (4.70-6.10); White Blood Count 3.43 K/ul (4.8-10.8)
[2023-06-18] MEDS: chlordiazePOXIDE HCl 25 MG CAP PO SCH ×3 (04:35→21:26)
[2023-06-18 04:51] LABS: BUN Creatinine Ratio 11.7 (10-20); Calcium 8.7 mg/dl (8.6-10.3); Est GFR (African American) 130.3 ml/min; Est GFR (Non-African American) 112.4 ml/min; Magnesium 1.9 mg/dl (1.7-2.4); Phosphorus 3.3 mg/dl (2.5-4.9); Potassium 3.2 mmol/L (3.5-5.1)
[2023-06-18] MEDS ORDERED: MAGNESIUM SULFATE / D5W 1 GM/100 ML BAG IV ONE (06:31)
[2023-06-18] MEDS: POTASSIUM CHLORIDE / WTR 10 MEQ/100 ML PLCT IV SCH ×4 (06:47→11:00)
--- NOTE | 2023-06-18 08:11 | Intensivist Progress Note ---
Date of Service June 18, 2023 Assessment & Plan (1) Alcohol withdrawal: (2) Upper GI bleeding: (3) Hypokalemia: Plan 57 year old male chronic alcohol use, multiple admission for ETOH withdrawl, erosive esophagitis with history of UGIB presents with ETOH withdrawl. Off precedex x 24 hours. Doing well on Librium taper. Replace electrolytes. Transfer to floor. Admission and Anticipated Discharge Date Admission Date: June 12, 2023 Subjective did well overnight. no complaints. denies anxiety. Physical Exam Constitutional: comfortable Respiratory: normal respiratory effort, lungs clear to auscultation Cardiovascular: Rate/Rhythm: regular rate and regular rhythm Skin: no rashes, warm and dry Neurologic: CN's II-XI intact bilaterally and awake Psychiatric: A+Ox3, euthymic affect Results & Data Results & Data Vital Signs (Past 12 Hours) Vital Signs Temp Pulse Resp BP Pulse Ox O2 Del Method O2 Flow Rate 06/18/23 06:18 37 C 06/18/23 05:00 109/64 06/18/23 05:00 77 19 95 Room Air 06/18/23 04:40 36.7 C 06/18/23 04:30 100/61 06/18/23 04:30 80 10 L 93 06/18/23 04:01 106/64 06/18/23 04:01 85 23 94 06/18/23 04:00 84 17 94 06/18/23 03:30 96/61 L 06/18/23 03:30 81 15 92 06/18/23 03:00 100/61 06/18/23 03:00 84 20 94 06/18/23 02:30 93/59 L 06/18/23 02:30 88 19 93 06/18/23 02:00 94/46 L 06/18/23 02:00 84 18 93 Room Air 06/18/23 01:30 93/47 L 06/18/23 01:30 91 H 22 93 Room Air 06/18/23 01:00 110/60 06/18/23 01:00 85 17 94 Room Air 06/18/23 00:30 106/59 L 06/18/23 00:30 81 18 93 Room Air 06/18/23 00:22 36.8 C 06/18/23 00:00 82 06/18/23 00:00 118/73 06/18/23 00:00 88 19 95 06/17/23 23:30 81 28 H 97 Room Air 06/17/23 23:30 111/66 06/17/23 23:00 103/61 06/17/23 23:00 83 18 96 06/17/23 22:30 109/65 06/17/23 22:30 83 16 97 Room Air 06/17/23 22:20 36.5 C 06/17/23 22:01 87 21 97 Room Air 1 06/17/23 22:01 105/72 06/17/23 22:00 80 18 94 Room Air 1 06/17/23 21:30 113/65 06/17/23 21:30 86 14 97 Room Air 1 06/17/23 21:00 110/65 06/17/23 21:00 90 16 98 Nasal Cannula 2 PG Care Time/CCT Total # of Minutes Spent Total Time Spent with Patient: Total time spent is greater than 50% in coordination of care (as documented) at patient's floor/unit and/or counseling patient: Coding Level of Care Code 98689 SUB INP/OBS CARE 2/35MIN Diagnoses Alcohol withdrawal syndrome with complication F10.939 Complication of substance-induced condition: with unspecified complication Upper GI bleeding K92.2 Hypokalemia E87.6 (1) Alcohol withdrawal Complication of substance-induced condition: with unspecified complication Qualified Code(s): F10.939 - Alcohol use, unspecified with withdrawal, unspecified
[2023-06-18] MEDS: POTASSIUM CHLORIDE CRTAB 20 MEQ TABCR PO SCH (08:37)
[2023-06-18] MEDS: MULTIVITAMIN TAB PO SCH (08:37)
[2023-06-18] MEDS: FOLIC ACID 1 MG TAB PO SCH (08:37)
[2023-06-18] MEDS: THIAMINE HCL 100 MG TAB PO SCH (08:37)
[2023-06-18] MEDS: PANTOprazole 40 MG TAB PO SCH ×2 (08:37→21:26)
[2023-06-18] MEDS: NICOTINE 14 MG/24 HR PATCH TD SCH (09:18)
--- NOTE | 2023-06-18 11:36 | Hospitalist Progress Note ---
Date of Service June 18, 2023 Assessment & Plan (1) Alcohol withdrawal: Plan: Acute alcohol withdrawal 1 pint of vodka intake per day consistently since prior admission. Last drink was evening of 06/08/2023. Reports a history of severe alcohol withdrawal with hallucinations, but no history of seizures/withdrawal seizures in the past Banana bag given in ER, high-dose thiamine protocol, folic acid and thiamine overnight, he became more agitated, requiring increasing doses of ativan, transferred to ICU -Started on Precedex infusion This was stopped on 06/17. -Continue CIWA protocol -Appreciate churn operator Patient is no longer in the ICU (2) Upper GI bleeding: Plan: initially bloody and then dark/black emesis which began 1 day prior to presentation -Stools have become dark/black On admitting exam stool is strongly guaiac positive Patient has a history of severe erosive esophagitis in the setting of alcohol use requiring EGD and cautery on 04/13/2023. Has not been compliant with PPI since discharge from that admission PPI bolus started, 40 mg Protonix push twice daily following this. We will treat medically at this time. GI notified, agree with medical treatment with BP at this time and deferring formal consult however if patient has downtrending hemoglobin or vital instability may need repeat EGD and can update/formally consult at that time clear liquid diet, advance as tolerated -hb stable (3) Hypomagnesemia: Plan: Repleted (4) Hypokalemia: Plan: replace potassium Plan DVT prophylaxis: Pharmacal prophylaxis contraindicated in the setting of bleed Disposition: PCU CODE STATUS: Full code Diet: Strict and continue hospitalization Admission and Anticipated Discharge Date Admission Date: June 12, 2023 Subjective 57 yo male reports no new symptoms. Review of Systems Review of Systems: All systems reviewed & are unremarkable except as noted in HPI & below Physical Exam Physical Exam: The patient is awake, HEENT--PERRL, EOMI Neck--supple. No JVD. Heart--normal S1 and S2. No murmurs, rubs or gallops. Lungs--clear bilaterally, no respiratory distress, no accessory muscle use. Abdomen--normal bowel sounds and soft. Extremities--no cyanosis or clubbing. No edema. Neurologic--cranial nerves II through XII grossly intact. Rheumatologic--normal range of motion. Psychiatric--normal affect. Results & Data Results & Data Vital Signs (Past 12 Hours) Vital Signs Temp Pulse Resp BP Pulse Ox O2 Del Method 06/18/23 11:04 79 06/18/23 09:21 37.5 C 06/18/23 09:01 93 H 15 99/70 L 91 Room Air 06/18/23 08:30 92 H 17 96/60 L 96 Room Air 06/18/23 08:00 64 25 H 103/63 94 Room Air 06/18/23 07:30 84 17 121/70 93 Room Air 06/18/23 07:00 77 15 96/59 L 97 Room Air 06/18/23 06:18 37 C 06/18/23 05:00 109/64 06/18/23 05:00 77 19 95 Room Air 06/18/23 04:40 36.7 C 06/18/23 04:30 100/61 06/18/23 04:30 80 10 L 93 06/18/23 04:01 106/64 06/18/23 04:01 85 23 94 06/18/23 04:00 84 17 94 06/18/23 03:30 96/61 L 06/18/23 03:30 81 15 92 06/18/23 03:00 100/61 06/18/23 03:00 84 20 94 06/18/23 02:30 93/59 L 06/18/23 02:30 88 19 93 06/18/23 02:00 94/46 L 06/18/23 02:00 84 18 93 Room Air 06/18/23 01:30 93/47 L 06/18/23 01:30 91 H 22 93 Room Air 06/18/23 01:00 110/60 06/18/23 01:00 85 17 94 Room Air 06/18/23 00:30 106/59 L 06/18/23 00:30 81 18 93 Room Air 06/18/23 00:22 36.8 C 06/18/23 00:00 82 06/18/23 00:00 118/73 06/18/23 00:00 88 19 95 PG Care Time/CCT Total # of Minutes Spent Total Time Spent with Patient: Total time spent is greater than 50% in coordination of care (as documented) at patient's floor/unit and/or counseling patient: Coding Level of Care Code 12276 SUB INP/OBS CARE MIN Diagnoses Alcohol withdrawal syndrome with complication F10.939 Complication of substance-induced condition: with unspecified complication Upper GI bleeding K92.2 Hypomagnesemia E83.42 Hypokalemia E87.6 (1) Alcohol withdrawal Complication of substance-induced condition: with unspecified complication Qualified Code(s): F10.939 - Alcohol use, unspecified with withdrawal, unspecified
[2023-06-18] MEDS ORDERED: POLYETHYLENE (MIRALAX) 17 GM PACK PO PRN (22:08)
[2023-06-18] MEDS ORDERED: DOCUSATE SODIUM/SENNA 50/8.6MG TAB PO PRN (22:08)
[2023-06-19] MEDS: chlordiazePOXIDE HCl 25 MG CAP PO SCH (04:44)
[2023-06-19 05:55] LABS: Basophils # (auto) 0.03 K/uL (0.00-0.20); Basophils % (auto) 0.7 %; Eosinophils # (auto) 0.07 K/uL (0.00-0.50); Eosinophils % (auto) 1.7 %; Hematocrit (blood only) 29.4 % (42.0-52.0); Hemoglobin 9.9 g/dl (14.0-18.0); Immature Granulocytes # (auto) 0.02 K/uL (0.01-0.20); Immature Granulocytes % (auto) 0.5 %; Lymphocytes # (auto) 1.28 K/uL (1.20-3.40); Lymphocytes % (auto) 31.3 %; Mean Corpuscular Hemoglobin 30.7 pg (25.0-34.0); Mean Corpuscular Hgb Conc 33.7 g/dL (32.0-36.0); Mean Corpuscular Volume 91.3 fL (80.0-100.0); Mean Platelet Volume 8.5 fL (9.4-12.4); Monocytes # (auto) 1.15 K/uL (0.11-0.59); Monocytes % (auto) 28.1 %; Neutrophils # (auto) 1.54 K/uL (1.40-6.50); Neutrophils % (auto) 37.7 %; Platelet Count 280 K/uL (130-400); RDW Coefficient of Variation 13.3 % (11.5-14.5); RDW Standard Deviation 44.8 fL (36.4-46.3); Red Blood Count 3.22 M/uL (4.70-6.10); White Blood Count 4.09 K/ul (4.8-10.8)
[2023-06-19 06:14] LABS: Calcium 8.7 mg/dl (8.6-10.3); Creatinine Clr Calc Pharmacy 175.2 ml/min; Est GFR (African American) 140.4 ml/min; Est GFR (Non-African American) 121.1 ml/min; Magnesium 1.9 mg/dl (1.7-2.4); Potassium 3.7 mmol/L (3.5-5.1)
[2023-06-19] MEDS: MULTIVITAMIN TAB PO SCH (08:33)
[2023-06-19] MEDS: PANTOprazole 40 MG TAB PO SCH (08:33)
[2023-06-19] MEDS: NICOTINE 14 MG/24 HR PATCH TD SCH (08:33)
[2023-06-19] MEDS: THIAMINE HCL 100 MG TAB PO SCH (08:33)
[2023-06-19] MEDS: FOLIC ACID 1 MG TAB PO SCH (08:33)
[2023-06-19] MEDS: POTASSIUM CHLORIDE CRTAB 20 MEQ TABCR PO SCH (08:33)
[2023-06-19] MEDS ORDERED: chlordiazePOXIDE HCl 25 MG CAP PO SCH (12:00)
--- NOTE | 2023-06-19 14:23 | Discharge Summary ---
Date of Service June 19, 2023 Admission HPI Per Admitting Provider Tao is a 57-year-old male with a past medical history of erosive esophagitis with upper GI bleed, alcohol abuse with history of ICU admission for withdrawal who presents to the emergency department with nausea/vomiting and general unwellness. At last admission received 20 mg of Valium while in ER for withdrawal and then was admitted on Ativan BJ S protocol. He has continued to drink about 1 pint of vodka per day that, last drink was evening of 06/08 approximately 4-5 days ago. He reports since 3 days ago he has had severe nausea, vomiting, shakes, and feeling overall poorly. Prior episodes of withdrawal symptoms have lasted around 7 days with peak severity at around day 46. He was seen by psychiatry at prior admission for alcohol use disorder with suspected underlying unspecified depression/anxiety. Was recommended to follow- up with CM for potential substance use residential treatment options. If renal function stable within acamprosate stable because permitting; alternatively if this was cost prohibitive up titration of gabapentin may have been of benefit the patient. Tao is seen at the bedside. He reports that he has continued drink alcohol since his prior admission. He has not been taking any antiacid medicines consistently. Medicines to assist with sobriety were discussed, but he has not yet had any of these prescribed or trialed. He reports that his current sym ptoms feel similar to his prior withdrawal symptoms and he does want to get and stay sober "I cannot keep doing this anymore, I cannot keep doing this to my body ". He reports he is interested in both rehab, pharmacologic cessation agents, and getting through medical detox. He reports he has continued to drink on average 1 pint of vodka per day up until last Tuesday, he reports he did well for a day or so and then developed worsening shakes, tremors, lightheadedness, dizziness, nausea, vomiting since yesterday. He reports he has had 1 day of black emesis and 1 day of black bowel movements which started several hours after his nausea/dry heaving/vomiting. He reports he was lightheaded and dizzy and felt like he was almost going to pass out yesterday, but that feeling has improved today and he is not lightheaded or dizzy today. Denies auditory/visual hallucinations. No chest pain or chest pressure. He is not short of breath. He reports he has no abdominal tenderness other than some discomfort when he is vomiting. Medical History: Reviewed Medications: Reviewed Surgical History: Reviewed Family history: Reviewed Allergies: Reviewed Social History: ETOH abuse as noted Code Status: Full Code Discharge Exam The patient is awake, HEENT--PERRL, EOMI Neck--supple. No JVD. Heart--normal S1 and S2. No murmurs, rubs or gallops. Lungs--clear bilaterally, no respiratory distress, no accessory muscle use. Abdomen--normal bowel sounds and soft. Extremities--no cyanosis or clubbing. No edema. Neurologic--cranial nerves II through XII grossly intact. Rheumatologic--normal range of motion. Psychiatric--normal affect. Discharge Data Allergies Allergy/AdvReac Type Severity Reaction Status Date / Time No Known Allergies Allergy Unverified 04/27/23 09:19 Consultations 06/12/23 11:19 ED Decision to Admit Stat 06/15/23 16:48 Consult Feed Preparation Operator Routine Hospital Course (1) Alcohol withdrawal: Acute alcohol withdrawal 1 pint of vodka intake per day consistently since prior admission. Last drink was evening of 06/08/2023. Reports a history of severe alcohol withdrawal with hallucinations, but no history of seizures/withdrawal seizures in the past Banana bag given in ER, high-dose thiamine protocol, folic acid and thiamine overnight, he became more agitated, requiring increasing doses of ativan, transferred to ICU -Started on Precedex infusion This was stopped on 06/17. -Patient was on a librium taper. -Appreciate workplace rehabilitation officer Patient is no longer in the ICU. (2) Upper GI bleeding: initially bloody and then dark/black emesis which began 1 day prior to presentation -Stools have become dark/black On admitting exam stool is strongly guaiac positive Patient has a history of severe erosive esophagitis in the setting of alcohol use requiring EGD and cautery on 04/13/2023. Has not been compliant with PPI since discharge from that admission PPI bolus started, 40 mg Protonix push twice daily following this. We will treat medically at this time. GI notified, agree with medical treatment with BP at this time and deferring formal consult however if patient has downtrending hemoglobin or vital instability may need repeat EGD and can update/formally consult at that time clear liquid diet, advance as tolerated -hb stable (3) Hypomagnesemia: Repleted (4) Hypokalemia: replace potassium Plan DVT prophylaxis: Pharmacal prophylaxis contraindicated in the setting of bleed Disposition: PCU CODE STATUS: Full code Diet: Strict and continue hospitalization Discharge Plan Discharge Items Patient Disposition: Home - Self-Care Reason For Visit: ETOH DETOX, UGIB Discharge Diagnosis: etoh detox Activity: Resume your previous activity Non-emergency contact: Primary Care Provider Call non-emergency contact if: you have any medication questions Follow-up/Referrals: Ervin Chavarria, [Primary Care Provider] - Diet: Regular Addtl Attending Provider Instructions: Continue to abstain from Alcohol. Please take your pantoprazole twice a day as this will protect you from bleeding. Will recommend a close followup with your PCP in 1-2 weeks. Will order iron supplementation to help you replenish the iron stores and optimize your body to make new red blood cells Pending Studies at Discharge: No Stand-Alone Forms: My [facility] [employer], Smoking Cessation Medications and DC Order Prescriptions: New ferrous sulfate 325 mg (65 mg iron) tablet 325 mg PO MOWEFR Qty: 15 0RF Rx Instructions: Take at noon Continued thiamine HCl (vitamin B1) 100 mg tablet 100 mg PO BID ergocalciferol (vitamin D2) 1,250 mcg (50,000 unit) capsule 50,000 unit PO WK Rx Instructions: sundays pantoprazole 40 mg Tablet,Delayed Release (Dr/Ec) 40 mg PO BID Qty: 60 2RF multivitamin Tablet 1 tab PO DAILY folic acid 1 mg Tablet 1 mg PO DAILY Qty: 30 0RF Discharge Orders: Discharge Order (Routine); Ordered 06/19/23 Ordered By: Dickson Medellin Admission Data Admit Date/Time: 06/12/23 12:11 Attending Provider: Dickson Medellin Admit Provider: Jose Arenas Primary Care Provider: Ervin Chavarria Other Providers: Jose Arenas; Luz Maria Pacheco Coding Diagnoses Alcohol withdrawal syndrome with complication F10.939 Complication of substance-induced condition: with unspecified complication Upper GI bleeding K92.2 Hypomagnesemia E83.42 Hypokalemia E87.6
== END 2023-06-19 15:37 | disposition home or self-care (01) | DRG 897 ==
LOC: ED 08:31 → EDINP 12:11 → SUATTDRO 12:11 → 2E 15:13 → 1E 06-15 20:49 → 3N 06-18 13:06